=== PATIENT | male | born 1955 | race Caucasian/White ===

== ENCOUNTER 2023-04-29 08:28 | Outpatient (OUT) | payer OTHER, SELFPAY ==
[2023-04-29 09:22] LABS: Basophils Percent Auto 0.6 % (0.2-2.0); Eosinophils Percent Auto 0.1 % (0.9-7.0); Hemoglobin 13.4 g/dL (14.0-18.0); Immature Granulocytes Abs Auto 0.03 10^3/uL (0.00-0.03); Immature Granulocytes Pct Auto 0.4 % (0.0-0.5); Lymphocytes Absolute Auto 1.7 10^3/uL (1.2-3.8); Lymphocytes Percent Auto 24.3 % (20.5-60.0); Mean Corpuscular HGB Conc 32.7 g/dL (29.9-35.2); Mean Corpuscular Hemoglobin 30.3 pg (25.9-34.0); Mean Corpuscular Volume 92.8 fL (80.0-94.0); Mean Platelet Volume 8.7 fL (9.5-13.5); Monocytes Absolute Auto 0.7 10^3/uL (0.3-0.8); Monocytes Percent Auto 10.9 % (1.7-12.0); Neutrophils Absolute Auto 4.3 10^3/uL (1.4-6.5); Neutrophils Percent Auto 63.7 % (43.0-75.0); Platelet Count 304 10^3/uL (150-450); Red Blood Count 4.42 10^6/uL (4.70-6.10); Red Cell Distribution Width 13.2 % (11.0-15.0); White Blood Count 6.8 10^3/uL (4.0-11.0)
[2023-04-29 09:47] LABS: Estimated Average Glucose 117 mg/dL; Glycohemoglobin A1C 5.7 % (4.5-6.2)
[2023-04-29 10:20] LABS: Prostate Specific Antigen Scrn 1.08 ng/mL (<=4.00)
[2023-04-29 10:30] LABS: Alanine Aminotransferase 20 U/L (16-63); Albumin Globulin Ratio 1.1; Albumin Level 3.9 g/dL (3.4-5.0); Alkaline Phosphatase 90 U/L (46-116); Anion Gap 12.2; Aspartate Amino Transferase 22 U/L (15-37); BUN Creatinine Ratio 18.3; Bilirubin Total 0.4 mg/dL (0.2-1.0); Calcium 8.8 mg/dL (8.5-10.1); Carbon Dioxide 26.2 mmol/L (21.0-32.0); Chloride 104 mmol/L (98-107); Chol HDL Ratio 2.9; Cholesterol 165 mg/dL (<=200); Estimated GFR (African America >60 (>=60); Estimated GFR (Non-African Ame >60 (>=60); Globulin 3.5 g/dL; Glucose 115 mg/dL (74-106); HDL Cholesterol 57 mg/dL (40-60); LDL Cholesterol Calculated 86.6 mg/dL; Potassium 4.4 mmol/L (3.5-5.1); Sodium 138 mmol/L (136-145); Thyroid Stimulating Hormone 0.772 uIU/mL (0.358-3.740); Total Protein 7.4 g/dL (6.4-8.2); Triglycerides 107 mg/dL (<=150); VLDL CHOLESTEROL 21.4 mg/dL
[2023-05-01 13:07] LABS: Insulin 10.8 uIU/mL (2.6-24.9)
== END 2023-04-29 08:29 | disposition home or self-care (01) ==
PROVIDERS: PCP Nurse Practitioner Family; Visit Provider Nurse Practitioner Family
DX: I10 Essential (primary) hypertension (principal); Z12.5 Encounter for screening for malignant neoplasm of prostate
CPT/HCPCS: 36415; 80053; 80061; 83036; 83525; 84436; 84443; 84481; 85025; G0103

== ENCOUNTER 2023-05-01 16:46 | Outpatient (REF) | payer OTHER, SELFPAY ==
[2023-05-02 14:39] LABS: Occult Blood Negative
== END 2023-05-01 16:47 | disposition home or self-care (01) ==
LOC: LAB 16:46
PROVIDERS: PCP Nurse Practitioner Family; Visit Provider Nurse Practitioner Family
DX: Z12.11 Encounter for screening for malignant neoplasm of colon (principal)
CPT/HCPCS: G0328

== ENCOUNTER 2024-05-31 07:54 | Outpatient (OUT) | payer MEDICARE, SELFPAY ==
[2024-05-31 08:42] LABS: Basophils Absolute Auto 0.1 10^3/uL (0.0-0.1); Basophils Percent Auto 0.7 % (0.2-2.0); Eosinophils Percent Auto 0.3 % (0.9-7.0); Hematocrit 38.6 % (42.0-54.0); Immature Granulocytes Abs Auto 0.04 10^3/uL (0.00-0.03); Immature Granulocytes Pct Auto 0.5 % (0.0-0.5); Lymphocytes Absolute Auto 1.7 10^3/uL (1.2-3.8); Lymphocytes Percent Auto 22.7 % (20.5-60.0); Mean Corpuscular HGB Conc 33.7 g/dL (29.9-35.2); Mean Corpuscular Hemoglobin 31.3 pg (25.9-34.0); Mean Corpuscular Volume 92.8 fL (80.0-94.0); Mean Platelet Volume 8.9 fL (9.5-13.5); Monocytes Absolute Auto 0.8 10^3/uL (0.3-0.8); Monocytes Percent Auto 10.9 % (1.7-12.0); Neutrophils Absolute Auto 4.8 10^3/uL (1.4-6.5); Neutrophils Percent Auto 64.9 % (43.0-75.0); Platelet Count 335 10^3/uL (150-450); Red Blood Count 4.16 10^6/uL (4.70-6.10); Red Cell Distribution Width 13.2 % (11.0-15.0); White Blood Count 7.4 10^3/uL (4.0-11.0)
[2024-05-31 10:27] LABS: Prostate Specific Antigen Scrn 1.16 ng/mL (<=4.00)
[2024-05-31 11:01] LABS: Estimated Average Glucose 117 mg/dL; Glycohemoglobin A1C 5.7 % (4.5-6.2)
[2024-05-31 11:30] LABS: Alanine Aminotransferase 31 U/L (16-63); Albumin Globulin Ratio 1.1; Albumin Level 3.7 g/dL (3.4-5.0); Alkaline Phosphatase 87 U/L (46-116); Anion Gap 13.3; Aspartate Amino Transferase 32 U/L (15-37); BUN Creatinine Ratio 11.6; Bilirubin Total 0.5 mg/dL (0.2-1.0); Calcium 9.4 mg/dL (8.5-10.1); Carbon Dioxide 27.2 mmol/L (21.0-32.0); Chloride 103 mmol/L (98-107); Cholesterol 159 mg/dL (<=200); Estimated GFR (African America >60 (>=60); Estimated GFR (Non-African Ame >60 (>=60); Globulin 3.5 g/dL; Glucose 105 mg/dL (74-106); HDL Cholesterol 53 mg/dL (40-60); LDL Cholesterol Calculated 76.4 mg/dL; Potassium 4.5 mmol/L (3.5-5.1); Sodium 139 mmol/L (136-145); Total Protein 7.2 g/dL (6.4-8.2); Triglycerides 148 mg/dL (<=150); VLDL CHOLESTEROL 29.6 mg/dL
[2024-06-01 10:09] LABS: Insulin 9.7 uIU/mL (2.6-24.9)
== END 2024-05-31 07:55 | disposition home or self-care (01) ==
PROVIDERS: PCP Nurse Practitioner Family; Visit Provider Nurse Practitioner Family
DX: Z00.00 Encounter for general adult medical examination without abnormal findings (principal); E78.5 Hyperlipidemia, unspecified; M19.90 Unspecified osteoarthritis, unspecified site; R73.9 Hyperglycemia, unspecified; Z12.5 Encounter for screening for malignant neoplasm of prostate
CPT/HCPCS: 36415; 80053; 80061; 83036; 83525; 85025; G0103

== ENCOUNTER 2025-03-01 09:19 | Outpatient (OUT) | payer MEDICARE, SELFPAY ==
--- OUTSIDE RECORDS SUMMARY | 2025-03-01 09:23 | XMS_ITS | CCD ---
Author Organization [facility] Care Team Providers Care Vascular Ultrasound Technologist Name Role Phone DR SITA LIGHT Admitting Unavailable DR SITA LIGHT Attending Unavailable JEFF, MARIA VICTORIA Primary Care Unavailable JEFF, MARIA VICTORIA Consulting Unavailable JEFF MARIA VICTORIA Admitting Unavailable JEFF MARIA VICTORIA Attending Unavailable JEFF, MARIA VICTORIA Primary Care Unavailable JEFF, MARIA VICTORIA Consulting Unavailable JEFF, MARIA VICTORIA Admitting Unavailable JEFF, MARIA VICTORIA Attending Unavailable JEFF, MARIA VICTORIA Primary Care Unavailable JEFF, MARIA VICTORIA Consulting Unavailable Problems Problem Classification Problem Date Documented Da te Episodic/Chronic Diabetes mellitus without complication (1 source) Other abnormal glucose; Translations: [OTHER ABNORMAL GLUCOSE] Onset: 03-21-2022 Episodic Disorders of lipid metabolism (5 sources) Hyperlipidemia, unspecified; Translations: [HYPERLIPIDEMIA UNSPECIFIED] Onset: 07-10-2021 Chronic Essential hypertension (4 sources) Essential (primary) hypertension; Translations: [ESSENTIAL PRIMARY HYPERTENSION] Onset: 03-27-2021 Chronic Gout and other crystal arthropathies (1 source) Gout, unspecified; Translations: [GOUT UNSPECIFIED] Onset: 03-21-2022 Chronic Malaise and fatigue (4 sources) Other fatigue; Translations: [OTHER FATIGUE] Onset: 03-12-2022 Episodic Other screening for suspected conditions (not mental disorders or infectious disease) (2 sources) Encounter for screening for malignant neoplasm of prostate; Translations: [Encounter for screening for malignant neoplasm of rectum] Onset: 03-31-2021 Episodic Results Test Name Value Interpretation Reference Range Facil ity INSULINon 03-14-2022 Insulin 11.0 uIU/mL Normal 2.6-24.9 [facility] Comment on above: Performed By: #### I NSULIN #### [facility] [address] [place], [place] [address] Dr. Kiara Olvera CBC AUTO DIFFon 03-12-2022 BASO # 0.1 103/ul Normal 0.0-0.1 [facility] Comment on above: Performed By: #### C MP, LIPID #### [facility] [address] [place] [address] Dr. Kiara Olvera Basophils/100 WBC (Bld) 0.8 % Normal 0.2-2.0 [facility] Comment on above: Performed By: #### C MP, LIPID #### [facility] [address] [place] [address] Dr. Kiara Olvera EO # 1.3 103/ul Critically high 0.0-0.7 [facility] Comment on above: Performed By: #### C MP, LIPID #### [facility] [address] [place] [address] Dr. Kiara Olvera Eosinophils/100 WBC (Bld) 19.8 % Critically high 0.9-7.0 [facility] Comment on above: Performed By: #### C MP, LIPID #### [facility] [address] [place] [address] Dr. Kiara Olvera Erythrocyte distribution width (RBC) [Ratio] 12.8 % Normal 11.0-15.0 [facility] Comment on above: Performed By: #### C MP, LIPID #### [facility] [address] [place] [address] Dr. Kiara Olvera Hematocrit (Bld) [Volume fraction] 41.4 % Critically low 42.0-54.0 [facility] Comment on above: Performed By: #### C MP, LIPID #### [facility] [address] [place] [address] Dr. Kiara Olvera Hemoglobin (Bld) [Mass/Vol] 13.8 g/dL Critically low 14.0-18.0 [facility] Comment on above: Performed By: #### C MP, LIPID #### [facility] [address] [place] [address] Dr. Kiara Olvera IG # 0.01 10e3/ul Normal 0.00-0.03 [facility] Comment on above: Performed By: #### C MP, LIPID #### [facility] [address] [place] [address] [address] Kiara Olvera IG % 0.2 % Normal 0.0-0.5 [facility] Comment on above: Performed By: #### C MP, LIPID #### [facility] [address] [place] [address] [address] Kiara Olvera LYMPH # 1.9 103/ul Normal 1.2-3.8 [facility] Comment on above: Performed By: #### C MP, LIPID #### [facility] [address] [place] [address] [address] Kiara Olvera Lymphocytes/100 WBC (Bld) 28.7 % Normal 20.5-60.0 [facility] Comment on above: Performed By: #### C MP, LIPID #### [facility] [address] [place] [address] Dr. Kiara Olvera MANUAL DIFF REQ NO Normal [facility] Comment on above: Performed By: #### C MP, LIPID #### [facility] [address] [place] [address] Dr. Kiara Olvera MCH (RBC) [Entitic mass] 30.4 pg Normal 25.9-34.0 [facility] Comment on above: Performed By: #### C MP, LIPID #### [facility] [address] [place] [address] Dr. Kiara Olvera MCHC (RBC) [Mass/Vol] 33.3 g/dL Normal 29.9-35.2 [facility] Comment on above: Performed By: #### C MP, LIPID #### [facility] [address] [place] [address] Dr. Kiara Olvera MCV (RBC) [Entitic vol] 91.2 fL Normal 80.0-94.0 [facility] Comment on above: Performed By: #### C MP, LIPID #### [facility] [address] [place] [address] Dr. Kiara Olvera MONO # 0.7 103/ul Normal 0.3-0.8 [facility] Comment on above: Performed By: #### C MP, LIPID #### [facility] [address] [place] [address] [address] Kiara Olvera Monocytes/100 WBC (Bld) 10.6 % Normal 1.7-12.0 [facility] Comment on above: Performed By: #### C MP, LIPID #### [facility] [address] [place] [address] [address] Kiara Olvera NEUT # 2.6 103/ul Normal 1.4-6.5 [facility] Comment on above: Performed By: #### C MP, LIPID #### [facility] [address] [place] [address] Dr. Kiara Olvera Neutrophils/100 WBC (Bld) 39.9 % Critically low 43.0-75.0 [facility] Comment on above: Performed By: #### C MP, LIPID #### [facility] [address] [place] [address] Dr. Kiara Olvera Platelet mean volume (Bld) [Entitic vol] 8.6 fL Critically low 9.5-13.5 [facility] Comment on above: Performed By: #### C MP, LIPID #### [facility] [address] [place] [address] Dr. Kiara Olvera PLT 336 103/ul Normal 150-450 [facility] Comment on above: Performed By: #### C MP, LIPID #### [facility] [address] [place] [address] Dr. Kiara Olvera RBC 4.54 106/ul Critically low 4.70-6.10 [facility] Comment on above: Performed By: #### C MP, LIPID #### [facility] [address] [place] [address] Dr. Kiara Olvera WBC 6.5 103/ul Normal 4.0-11.0 [facility] Comment on above: Performed By: #### C MP, LIPID #### [facility] [address] [place] [address] Dr. Kiara Olvera GLYCOHEMOGLOBIN A1Con 2021 ADA RECOMMENDATION SEE BELOW Normal [facility] Comment on above: Result Comment: ADA RECOMMENDED LIMIT 4.0 - 6.0 ADA THERAPEUTIC TARGET < 7.0 ACTION SUGGESTED > 7.0 Performed By: #### C MP, LIPID #### [facility] [address] [place] [address] [address] Kiara Olvera Glucose [Mass/Vol] 123 mg/dL Normal [facility] Comment on above: Performed By: #### C MP, LIPID #### [facility] [address] [place] [address] [address] Kiara Olvera HbA1c (Bld) [Mass fraction] 5.9 % Normal 4.5-6.2 [facility] Comment on above: Performed By: #### C MP, LIPID #### [facility] [address] [place] [address] Dr. Kiara Olvera LIPID PROFILEon 03-12-2022 CHOL-HDL RATIO NORM SEE BELOW Normal [facility] Comment on above: Result Comment: 3.3 - 4.4 LOW RISK 4.4 - 7.1 AVERAGE RISK 7.1 - 11.0 MODERATE RISK >11.0 HIGH RISK Performed By: #### C MP, LIPID #### [facility] [address] [place] [address] Dr. Kiara Olvera Cholesterol [Mass/Vol] 213 mg/dL Critically high <=200 [facility] Comment on above: Performed By: #### C MP, LIPID #### [facility] [address] [place] [address] Dr. Kiara Olvera Cholesterol in HDL [Mass/Vol] 57 mg/dL Normal 40-60 [facility] Comment on above: Performed By: #### C MP, LIPID #### [facility] [address] [place] [address] Dr. Kiara Olvera Cholesterol in LDL [Mass/Vol] 136.0 mg/dL Normal [facility] Comment on above: Performed By: #### C MP, LIPID #### [facility] [address] [place] [address] Dr. Kiara Olvera Cholesterol.total/Cho lesterol in HDL [Mass ratio] 3.7 {ratio} Normal [facility] Comment on above: Performed By: #### C MP, LIPID #### [facility] [address] [place] [address] Dr. Kiara Olvera HDL NORMAL > or = 60 mg/dl - LOW CARDIOVASCULAR RISK <40 mg/dl - HIGH CARDIOVASCULAR RISK Normal [facility] Comment on above: Performed By: #### C MP, LIPID #### [facility] [address] [place] [address] [address] Kiara Olvera LDL CALC NORMAL SEE BELOW Normal [facility] Comment on above: Result Comment: <100 mg/dl OPTIMAL 100 - 129 mg/dl NEAR OR ABOVE OPTIMAL 130 - 159 mg/dl BORDERLINE HIGH 160 - 189 mg/dl HIGH >190 mg/dl VERY HIGH Performed By: #### C MP, LIPID #### [facility] [address] [place] [address] Dr. Kiara Olvera Triglyceride [Mass/Vol] 100 mg/dL Normal <=150 [facility] Comment on above: Performed By: #### C MP, LIPID #### [facility] [address] [place] [address] Dr. Kiara Olvera VLDL CALC 20.0 mg/dL Normal [facility] Comment on above: Performed By: #### C MP, LIPID #### [facility] [address] [place] [address] Dr. Kiara Olvera PROF 14(COMP METB)on 022 Albumin [Mass/Vol] 3.9 g/dL Normal 3.4-5.0 [facility] Comment on above: Performed By: #### C MP, LIPID #### [facility] [address] [place] [address] Dr. Kiara Olvera Albumin/Globulin [Mass ratio] 1.0 {ratio} Normal [facility] Comment on above: Performed By: #### C MP, LIPID #### [facility] [address] [place] [address] Dr. Kiara Olvera ALP [Catalytic activity/Vol] 84 U/L Normal 46-116 [facility] Comment on above: Performed By: #### C MP, LIPID #### [facility] [address] [place] [address] Dr. Kiara Olvera ALT [Catalytic activity/Vol] 20 U/L Normal 16-63 [facility] Comment on above: Performed By: #### C MP, LIPID #### [facility] [address] [place] [address] Dr. Kiara Olvera Anion gap [Moles/Vol] 13.1 mmol/L Normal [facility] Comment on above: Performed By: #### C MP, LIPID #### [facility] [address] [place] [address] Dr. Kiara Olvera AST [Catalytic activity/Vol] 24 U/L Normal 15-37 [facility] Comment on above: Performed By: #### C MP, LIPID #### [facility] [address] [place] [address] Dr. Kiara Olvera Bilirubin [Mass/Vol] 0.4 mg/dL Normal 0.2-1.0 [facility] Comment on above: Performed By: #### C MP, LIPID #### [facility] [address] [place] [address] Dr. Kiara Olvera Calcium [Mass/Vol] 9.2 mg/dL Normal 8.5-10.1 [facility] Comment on above: Performed By: #### C MP, LIPID #### [facility] [address] [place] [address] Dr. Kiara Olvera Chloride [Moles/Vol] 103 mmol/L Normal 98-107 [facility] Comment on above: Performed By: #### C MP, LIPID #### [facility] [address] [place] [address] Dr. Kiara Olvera CO2 [Moles/Vol] 26.4 mmol/L Normal 21.0-32.0 [facility] Comment on above: Performed By: #### C MP, LIPID #### [facility] [address] [place] [address] Dr. Kiara Olvera Creatinine [Mass/Vol] 0.92 mg/dL Normal 0.70-1.30 [facility] Comment on above: Performed By: #### C MP, LIPID #### [facility] [address] [place] [address] Dr. Kiara Olvera EGFR-AF TONGAN >60 Normal >=60 [facility] Comment on above: Performed By: #### C MP, LIPID #### [facility] [address] [place] [address] [address] Kiara Olvera EGFR-NON AF TONGAN >60 Normal >=60 [facility] Comment on above: Performed By: #### C MP, LIPID #### [facility] [address] [place] [address] [address] Kiara Olvera Globulin (S) [Mass/Vol] 3.9 g/dL Normal [facility] Comment on above: Performed By: #### C MP, LIPID #### [facility] [address] [place] [address] [address] Kiara Olvera Glucose [Mass/Vol] 114 mg/dL Critically high 74-106 [facility] Comment on above: Performed By: #### C MP, LIPID #### [facility] [address] [place] [address] [address] Kiara Olvera Potassium [Moles/Vol] 4.5 mmol/L Normal 3.5-5.1 [facility] Comment on above: Performed By: #### C MP, LIPID #### [facility] [address] [place] [address] [address] Kiara Olvera Protein [Mass/Vol] 7.8 g/dL Normal 6.4-8.2 [facility] Comment on above: Performed By: #### C MP, LIPID #### [facility] [address] [place] [address] [address] Kiara Olvera Sodium [Moles/Vol] 138 mmol/L Normal 136-145 [facility] Comment on above: Performed By: #### C MP, LIPID #### [facility] [address] [place] [address] [address] Kiara Olvera Urea nitrogen [Mass/Vol] 11.0 mg/dL Normal 7.0-18.0 [facility] Comment on above: Performed By: #### C MP, LIPID #### [facility] [address] [place] [address] [address] Kiara Olvera Urea nitrogen/Creatinine [Mass ratio] 12.0 mg/mg Normal [facility] Comment on above: Performed By: #### C MP, LIPID #### [facility] [address] [place] [address] [address] Kiara Olvera URIC ACID SERUMon 03-12-2022 Urate [Mass/Vol] 5.5 mg/dL Normal 3.5-7.2 [facility] Comment on above: Performed By: #### C MP, LIPID #### [facility] [address] [place] [address] [address] Kiara Olvera LIPID PROFILEon 07-10-2021 CHOL-HDL RATIO NORM SEE BELOW Normal [facility] Comment on above: Result Comment: 3.3 - 4.4 LOW RISK 4.4 - 7.1 AVERAGE RISK 7.1 - 11.0 MODERATE RISK >11.0 HIGH RISK Performed By: #### C MP, LIPID #### [facility] [address] [place] [address] [address] Kiara Olvera Cholesterol [Mass/Vol] 230 mg/dL Critically high <=200 [facility] Comment on above: Performed By: #### C MP, LIPID #### [facility] [address] [place] [address] [address] Kiara Olvera Cholesterol in HDL [Mass/Vol] 46 mg/dL Normal [facility] Comment on above: Performed By: #### C MP, LIPID #### [facility] [address] [place] [address] [address] Kiara Olvera Cholesterol in LDL [Mass/Vol] 148.6 mg/dL Normal [facility] Comment on above: Performed By: #### C MP, LIPID #### [facility] [address] [place] [address] [address] Kiara Olvera Cholesterol.total/Cho lesterol in HDL [Mass ratio] 5.0 {ratio} Normal [facility] Comment on above: Performed By: #### C MP, LIPID #### [facility] [address] [place] [address] [address] Kiara Olvera HDL NORMAL > or = 60 mg/dl - LOW CARDIOVASCULAR RISK <40 mg/dl - HIGH CARDIOVASCULAR RISK Normal [facility] Comment on above: Performed By: #### C MP, LIPID #### [facility] [address] [place] [address] Dr. Kiara Olvera LDL CALC NORMAL SEE BELOW Normal [facility] Comment on above: Result Comment: <100 mg/dl OPTIMAL 100 - 129 mg/dl NEAR OR ABOVE OPTIMAL 130 - 159 mg/dl BORDERLINE HIGH 160 - 189 mg/dl HIGH >190 mg/dl VERY HIGH Performed By: #### C MP, LIPID #### [facility] [address] [place] [address] Dr. Kiara Olvera Triglyceride [Mass/Vol] 177 mg/dL Critically high <=150 [facility] Comment on above: Performed By: #### C MP, LIPID #### [facility] [address] [place] [address] Dr. Kiara Olvera VLDL CALC 35.4 mg/dL Normal [facility] Comment on above: Performed By: #### C MP, LIPID #### [facility] [address] [place] [address] Dr. Kiara Olvera PROF 14(COMP METB)on 021 Albumin [Mass/Vol] 4.0 g/dL Normal 3.5-5.0 [facility] Comment on above: Performed By: #### C MP, LIPID #### [facility] [address] [place] [address] Dr. Kiara Olvera Albumin/Globulin [Mass ratio] 1.0 {ratio} Normal [facility] Comment on above: Performed By: #### C MP, LIPID #### [facility] [address] [place] [address] Dr. Kiara Olvera ALP [Catalytic activity/Vol] 99 U/L Normal 38-126 [facility] Comment on above: Performed By: #### C MP, LIPID #### [facility] [address] [place] [address] Dr. Kiara Olvera ALT [Catalytic activity/Vol] 22 U/L Normal 21-72 [facility] Comment on above: Performed By: #### C MP, LIPID #### [facility] [address] [place] [address] Dr. Kiara Olvera Anion gap [Moles/Vol] 14.6 mmol/L Normal [facility] Comment on above: Performed By: #### C MP, LIPID #### [facility] [address] [place] [address] Dr. Kiara Olvera AST [Catalytic activity/Vol] 25 U/L Normal 17-59 [facility] Comment on above: Performed By: #### C MP, LIPID #### [facility] [address] [place] [address] Dr. Kiara Olvera Bilirubin [Mass/Vol] 0.6 mg/dL Normal 0.2-1.3 [facility] Comment on above: Performed By: #### C MP, LIPID #### [facility] [address] [place] [address] Dr. Kiara Olvera Calcium [Mass/Vol] 9.4 mg/dL Normal 8.4-10.2 [facility] Comment on above: Performed By: #### C MP, LIPID #### [facility] [address] [place] [address] Dr. Kiara Olvera Chloride [Moles/Vol] 101 mmol/L Normal 98-107 [facility] Comment on above: Performed By: #### C MP, LIPID #### [facility] [address] [place] [address] Dr. Kiara Olvera CO2 [Moles/Vol] 25.8 mmol/L Normal 22.0-30.0 [facility] Comment on above: Performed By: #### C MP, LIPID #### [facility] [address] [place] [address] Dr. Kiara Olvera Creatinine [Mass/Vol] 0.80 mg/dL Normal 0.66-1.25 [facility] Comment on above: Performed By: #### C MP, LIPID #### [facility] [address] [place] [address] Dr. Kiara Olvera EGFR-AF TONGAN >60 Normal >=60 [facility] Comment on above: Performed By: #### C MP, LIPID #### [facility] [address] [place] [address] Dr. Kiara Olvera EGFR-NON AF TONGAN >60 Normal >=60 [facility] Comment on above: Performed By: #### C MP, LIPID #### [facility] [address] [place] [address] Dr. Kiara Olvera Globulin (S) [Mass/Vol] 4.2 g/dL Normal [facility] Comment on above: Performed By: #### C MP, LIPID #### [facility] [address] [place] [address] Dr. Kiara Olvera Glucose [Mass/Vol] 102 mg/dL Normal 74-106 [facility] Comment on above: Performed By: #### C MP, LIPID #### [facility] [address] [place] [address] Dr. Kiara Olvera Potassium [Moles/Vol] 4.4 mmol/L Normal 3.4-5.0 [facility] Comment on above: Performed By: #### C MP, LIPID #### [facility] [address] [place] [address] Dr. Kiara Olvera Protein [Mass/Vol] 8.2 g/dL Normal 6.1-8.2 [facility] Comment on above: Performed By: #### C MP, LIPID #### [facility] [address] [place] [address] Dr. Kiara Olvera Sodium [Moles/Vol] 137 mmol/L Normal 137-145 [facility] Comment on above: Performed By: #### C MP, LIPID #### [facility] [address] [place] [address] Dr. Kiara Olvera Urea nitrogen [Mass/Vol] 12.0 mg/dL Normal 9.0-20.0 [facility] Comment on above: Performed By: #### C MP, LIPID #### [facility] [address] [place] [address] Dr. Kiara Olvera Urea nitrogen/Creatinine [Mass ratio] 15.0 mg/mg Normal [facility] Comment on above: Performed By: #### C MP, LIPID #### [facility] [address] [place] [address] Dr. Kiara Olvera INSULINon 03-29-2021 Insulin 17.0 uIU/mL Normal 2.6-24.9 [facility] Comment on above: Performed By: #### I NSULIN #### [facility] [address] [place] [address] Albin Kohler CBC AUTO DIFFon 03-27-2021 BASO # 0.1 103/ul Normal 0.0-0.1 [facility] Comment on above: Performed By: #### C MP, LIPID #### [facility] [address] [place] [address] Dr. Kiara Olvera Basophils/100 WBC (Bld) 0.9 % Normal 0.2-2.0 [facility] Comment on above: Performed By: #### C MP, LIPID #### [facility] [address] [place] [address] Dr. Kiara Olvera EO # 0.0 103/ul Normal 0.0-0.7 [facility] Comment on above: Performed By: #### C MP, LIPID #### [facility] [address] [place] [address] Dr. Kiara Olvera Eosinophils/100 WBC (Bld) 0.6 % Critically low 0.9-7.0 [facility] Comment on above: Performed By: #### C MP, LIPID #### [facility] [address] [place] [address] Dr. Kiara Olvera Erythrocyte distribution width (RBC) [Ratio] 13.9 % Normal 11.0-15.0 [facility] Comment on above: Performed By: #### C MP, LIPID #### [facility] [address] [place] [address] Dr. Kiara Olvera Hematocrit (Bld) [Volume fraction] 44.6 % Normal 42.0-54.0 [facility] Comment on above: Performed By: #### C MP, LIPID #### [facility] [address] [place] [address] Dr. Kiara Olvera Hemoglobin (Bld) [Mass/Vol] 14.8 g/dL Normal 14.0-18.0 [facility] Comment on above: Performed By: #### C MP, LIPID #### [facility] [address] [place] [address] Dr. Kiara Olvera IG # 0.03 10e3/ul Normal 0.00-0.03 [facility] Comment on above: Performed By: #### C MP, LIPID #### [facility] [address] [place] [address] Dr. Kiara Olvera IG % 0.4 % Normal 0.0-0.5 [facility] Comment on above: Performed By: #### C MP, LIPID #### [facility] [address] [place] [address] Dr. Kiara Olvera LYMPH # 2.1 103/ul Normal 1.2-3.8 [facility] Comment on above: Performed By: #### C MP, LIPID #### [facility] [address] [place] [address] Dr. Kiara Olvera Lymphocytes/100 WBC (Bld) 29.5 % Normal 20.5-60.0 [facility] Comment on above: Performed By: #### C MP, LIPID #### [facility] [address] [place] [address] Dr. Kiara Olvera MANUAL DIFF REQ NO Normal [facility] Comment on above: Performed By: #### C MP, LIPID #### [facility] [address] [place] [address] Dr. Kiara Olvera MCH (RBC) [Entitic mass] 30.0 pg Normal 25.9-34.0 [facility] Comment on above: Performed By: #### C MP, LIPID #### [facility] [address] [place] [address] Dr. Kiara Olvera MCHC (RBC) [Mass/Vol] 33.2 g/dL Normal 29.9-35.2 [facility] Comment on above: Performed By: #### C MP, LIPID #### [facility] [address] [place] [address] Dr. Kiara Olvera MCV (RBC) [Entitic vol] 90.5 fL Normal 80.0-94.0 [facility] Comment on above: Performed By: #### C MP, LIPID #### [facility] [address] [address] [address] Kiara Olvera MONO # 0.6 103/ul Normal 0.3-0.8 [facility] Comment on above: Performed By: #### C MP, LIPID #### [facility] [address] [address] [address] Kiara Olvera Monocytes/100 WBC (Bld) 9.1 % Normal 1.7-12.0 [facility] Comment on above: Performed By: #### C MP, LIPID #### [facility] [address] [address] [address] Kiara Olvera NEUT # 4.1 103/ul Normal 1.4-6.5 [facility] Comment on above: Performed By: #### C MP, LIPID #### [facility] [address] [place] [address] Dr. Kiara Olvera Neutrophils/100 WBC (Bld) 59.5 % Normal 43.0-75.0 [facility] Comment on above: Performed By: #### C MP, LIPID #### [facility] [address] [place] [address] Dr. Kiara Olvera Platelet mean volume (Bld) [Entitic vol] 8.9 fL Critically low 9.5-13.5 [facility] Comment on above: Performed By: #### C MP, LIPID #### [facility] [address] [place] [address] Dr. Kiara Olvera PLT 298 103/ul Normal 150-450 [facility] Comment on above: Performed By: #### C MP, LIPID #### [facility] [address] [place] [address] Dr. Kiara Olvera RBC 4.93 106/ul Normal 4.70-6.10 [facility] Comment on above: Performed By: #### C MP, LIPID #### [facility] [address] [place] [address] Dr. Kiara Olvera WBC 6.9 103/ul Normal 4.0-11.0 [facility] Comment on above: Performed By: #### C MP, LIPID #### [facility] [address] [place], [place] [address] Dr. Kiara Olvera GLYCOHEMOGLOBIN A1Con 2020 ADA RECOMMENDATION ADA THERAPEUTIC TARGET 6.0 - 7.0 ACTION SUGGESTED > 7.0 Normal [facility] Comment on above: Performed By: #### A 1C #### [facility] [address] [id number] Albin Edita Glucose [Mass/Vol] 126 mg/dL Normal [facility] Comment on above: Performed By: #### A 1C #### [facility] [address] [address] Albin Edita HbA1c (Bld) [Mass fraction] 6.0 % Normal <=6.0 [facility] Comment on above: Performed By: #### A 1C #### [facility] [address] [address] Albin Edita LIPID PROFILEon 03-27-2021 CHOL-HDL RATIO NORM SEE BELOW Normal [facility] Comment on above: Result Comment: 3.3 - 4.4 LOW RISK 4.4 - 7.1 AVERAGE RISK 7.1 - 11.0 MODERATE RISK >11.0 HIGH RISK Performed By: #### P SASC, LIPID, CMP, URIC #### [facility] [address] [address] Albin Edita Cholesterol [Mass/Vol] 254 mg/dL Critically high <=200 [facility] Comment on above: Performed By: #### P SASC, LIPID, CMP, URIC #### [facility] [address] [address] Albin Edita Cholesterol in HDL [Mass/Vol] 46 mg/dL Normal [facility] Comment on above: Performed By: #### P SASC, LIPID, CMP, URIC #### [facility] [address] [id number] Ablin Edita Cholesterol in LDL [Mass/Vol] 179.0 mg/dL Normal [facility] Comment on above: Performed By: #### P SASC, LIPID, CMP, URIC #### [facility] [address] [address] Albin Edita Cholesterol.total/Cho lesterol in HDL [Mass ratio] 5.5 {ratio} Normal [facility] Comment on above: Performed By: #### P SASC, LIPID, CMP, URIC #### [facility] [address] [id number] Albinjorge a Kohler HDL NORMAL > or = 60 mg/dl - LOW CARDIOVASCULAR RISK <40 mg/dl - HIGH CARDIOVASCULAR RISK Normal [facility] Comment on above: Performed By: #### P SASC, LIPID, CMP, URIC #### [facility] [address] [id number] Albin Kohler LDL CALC NORMAL SEE BELOW Normal [facility] Comment on above: Result Comment: <100 mg/dl OPTIMAL 100 - 129 mg/dl NEAR OR ABOVE OPTIMAL 130 - 159 mg/dl BORDERLINE HIGH 160 - 189 mg/dl HIGH >190 mg/dl VERY HIGH Performed By: #### P SASC, LIPID, CMP, URIC #### [facility] [address] [address] Albin Kohler Triglyceride [Mass/Vol] 147 mg/dL Normal <=150 [facility] Comment on above: Performed By: #### P SASC, LIPID, CMP, URIC #### [facility] [address] [id number] Albin Kohelr VLDL CALC 29.4 mg/dL Normal [facility] Comment on above: Performed By: #### P SASC, LIPID, CMP, URIC #### [facility] [address] [id number] Albin Kohler OCC BLD IMMUNO SCREENon 03-03 OCCULT BLOOD Negative Normal NEGATIVE [facility] Comment on above: Performed By: #### O BSCRN #### [facility] [address] [id number] Albin Edita PROF 14(COMP METB)on 021 Albumin [Mass/Vol] 3.8 g/dL Normal 3.5-5.0 [facility] Comment on above: Performed By: #### C MP, LIPID #### [facility] [id number] Kiara Olvera Albumin/Globulin [Mass ratio] 0.8 {ratio} Normal [facility] Comment on above: Performed By: #### C MP, LIPID #### [facility] [address] [place] [address] Dr. Kiara Olvera ALP [Catalytic activity/Vol] 88 U/L Normal 38-126 [facility] Comment on above: Performed By: #### C MP, LIPID #### [facility] [address] [address] [address] Kiara Olvera ALT [Catalytic activity/Vol] 19 U/L Critically low 21-72 [facility] Comment on above: Performed By: #### C MP, LIPID #### [facility] [address] [place] [address] Dr. Kiara Olvera Anion gap [Moles/Vol] 15.2 mmol/L Normal [facility] Comment on above: Performed By: #### C MP, LIPID #### [facility] [address] [address] [address] Kiara Olvera AST [Catalytic activity/Vol] 19 U/L Normal 17-59 [facility] Comment on above: Performed By: #### C MP, LIPID #### [facility] [address] [place] [address] Dr. Kiara Olvera Bilirubin [Mass/Vol] 0.4 mg/dL Normal 0.2-1.3 [facility] Comment on above: Performed By: #### C MP, LIPID #### [facility] [address] [address] [address] Kiara Olvera Calcium [Mass/Vol] 9.1 mg/dL Normal 8.4-10.2 [facility] Comment on above: Performed By: #### C MP, LIPID #### [facility] [address] [place] [address] Dr. Kiara Olvera Chloride [Moles/Vol] 104 mmol/L Normal 98-107 [facility] Comment on above: Performed By: #### C MP, LIPID #### [facility] [address] [place] [address] Dr. Kiara Olvera CO2 [Moles/Vol] 25.3 mmol/L Normal 22.0-30.0 [facility] Comment on above: Performed By: #### C MP, LIPID #### [facility] [address] [place] [address] Dr. Kiara Olvera Creatinine [Mass/Vol] 1.00 mg/dL Normal 0.66-1.25 [facility] Comment on above: Performed By: #### C MP, LIPID #### [facility] [address] [address] [address] Kiara Olvera EGFR-AF TONGAN >60 Normal >=60 [facility] Comment on above: Performed By: #### C MP, LIPID #### [facility] [address] [place] [address] Dr. Kiara Olvera EGFR-NON AF TONGAN >60 Normal >=60 [facility] Comment on above: Performed By: #### C MP, LIPID #### [facility] [address] [place] [address] Dr. Kiara Olvera Globulin (S) [Mass/Vol] 4.3 g/dL Normal [facility] Comment on above: Performed By: #### C MP, LIPID #### [facility] [address] [place] [address] Dr. Kiara Olvera Glucose [Mass/Vol] 115 mg/dL Critically high 74-[address] [facility] Comment on above: Performed By: #### C MP, LIPID #### [facility] [address] [place] [address] Dr. Kiara Olvera Potassium [Moles/Vol] 4.5 mmol/L Normal 3.4-5.0 [facility] Comment on above: Performed By: #### C MP, LIPID #### [facility] [address] [place] [address] Dr. Kiara Olvera Protein [Mass/Vol] 8.1 g/dL Normal 6.1-8.2 [facility] Comment on above: Performed By: #### C MP, LIPID #### [facility] [address] [place] [address] Dr. Kiara Olvera Sodium [Moles/Vol] 140 mmol/L Normal 137-145 [facility] Comment on above: Performed By: #### C MP, LIPID #### [facility] [address] [place], [place] [address] Dr. Kiara Olvera Urea nitrogen [Mass/Vol] 12.0 mg/dL Normal 9.0-20.0 [facility] Comment on above: Performed By: #### C MP, LIPID #### [facility] [id number] Kiara Olvera Urea nitrogen/Creatinine [Mass ratio] 12.0 mg/mg Normal [facility] Comment on above: Performed By: #### C MP, LIPID #### [facility] [address] [place] [address] Dr. Kiara Olvera URIC ACID SERUMon 03-27-2021 Urate [Mass/Vol] 6.5 mg/dL Normal 3.5-8.5 [facility] Comment on above: Performed By: #### P SASC, LIPID, CMP, URIC #### [facility] [address] [place], [place] [id number] Albin Kohler Encounters Encounter Date Encounter Type Care Provider Facility Start: 03-12-2022 End: 03-13-[address] SITA LIGHT Facility:[facility] Start: 07-10-2021 End: 07-11-2021 ambulatory MARIA VICTORIA AGUILAR Facility:[facility] Start: 03-27-2021 End: 03-28-2021 ambulatory MARIA VICTORIA AGUILAR Facility: Procedures Date Procedure Procedure Detail Performing Clinician Start: 03-12-[address] MISSY LIGHT Comment on above: Performed By: #### P SASC #### [facility] [address] [place] [address] [address] [address] Kiara Olvera Start: 03-27-[address] MISSY LIGHT Comment on above: Performed By: #### P SASC, LIPID, CMP, URIC #### [facility] [address] [place] [address] Albin Kohler Payers Date Payer Category Payer Medicare [id number] 1960 Unknown [id number] 1955 Unknown [id number] 1955 Unknown [id number] [id number] [id number] 1955 Unknown [id number] [id number] [id number] Summary Purpose Family History No Family History Records Found Advance Directives No Advanced Directives Records Found Additional Source Comments (unrecognized sect ion and content) No Status Records Found INFORMATION SOURCE (unrecogn ized section and content) DATE CREATED AUTHOR 03/22/2022 [facility] FOR RECORDS PERTAINING TO PATIENTS WHO ARE OR HAVE BEEN ENROLLED IN A CHEMICAL DEPENDENCY/SUBSTANCEABUSE PROGRAM, SOME INFORMATION MAY BE OMITTED. This clinical summary was aggregated from multiple sources. Caution should be exercised in using it in the provision of clinical care. This summary normalizes information from multiple sources, and as a consequence, information in this document may materially change the coding, format and clinical context of patient data. In addition, data may be omitted in some cases. CLINICAL DECISIONS SHOULD BE BASED ON THE PRIMARY CLINICAL RECORDS. [facility] [employer] [facility]. provides no warranty or guarantee of the accuracy or completeness of information in this document.
[2025-03-01 09:53] LABS: Basophils Absolute Auto 0.1 10^3/uL (0.0-0.1); Basophils Percent Auto 0.7 % (0.2-2.0); Hematocrit 41.2 % (42.0-54.0); Hemoglobin 13.7 g/dL (14.0-18.0); Immature Granulocytes Abs Auto 0.05 10^3/uL (0.00-0.03); Immature Granulocytes Pct Auto 0.6 % (0.0-0.5); Lymphocytes Absolute Auto 2.2 10^3/uL (1.2-3.8); Lymphocytes Percent Auto 25.1 % (20.5-60.0); Mean Corpuscular HGB Conc 33.3 g/dL (29.9-35.2); Mean Corpuscular Hemoglobin 30.5 pg (25.9-34.0); Mean Corpuscular Volume 91.8 fL (80.0-94.0); Mean Platelet Volume 8.8 fL (9.5-13.5); Monocytes Absolute Auto 0.9 10^3/uL (0.3-0.8); Monocytes Percent Auto 10.1 % (1.7-12.0); Neutrophils Absolute Auto 5.6 10^3/uL (1.4-6.5); Neutrophils Percent Auto 63.5 % (43.0-75.0); Platelet Count 373 10^3/uL (150-450); Red Blood Count 4.49 10^6/uL (4.70-6.10); Red Cell Distribution Width 12.7 % (11.0-15.0); White Blood Count 8.7 10^3/uL (4.0-11.0)
[2025-03-01 10:13] LABS: Estimated Average Glucose 128 mg/dL; Glycohemoglobin A1C 6.1 % (4.5-6.2)
[2025-03-01 10:24] LABS: Alanine Aminotransferase 30 U/L (16-63); Albumin Globulin Ratio 0.9; Albumin Level 3.5 g/dL (3.4-5.0); Alkaline Phosphatase 113 U/L (46-116); Anion Gap 17.8; Aspartate Amino Transferase 27 U/L (15-37); BUN Creatinine Ratio 21.6; Bilirubin Total 0.3 mg/dL (0.2-1.0); Calcium 9.3 mg/dL (8.5-10.1); Carbon Dioxide 22.9 mmol/L (21.0-32.0); Chloride 101 mmol/L (98-107); Chol HDL Ratio 3.9; Cholesterol 169 mg/dL (<=200); Estimated GFR (African America >60 (>=60 mL/min/1.73m^2); Estimated GFR (Non-African Ame >60 (>=60 mL/min/1.73m^2); Free T3 1.63 pg/mL (2.18-3.98); Globulin 4.1 g/dL; Glucose 105 mg/dL (74-106); HDL Cholesterol 43 mg/dL (40-60); LDL Cholesterol Calculated 101.4 mg/dL; Potassium 4.7 mmol/L (3.5-5.1); Sodium 137 mmol/L (136-145); Thyroid Stimulating Hormone 1.132 uIU/mL (0.358-3.740); Total Protein 7.6 g/dL (6.4-8.2); Triglycerides 123 mg/dL (<=150); VLDL CHOLESTEROL 24.6 mg/dL
[2025-03-01 12:04] LABS: Prostate Specific Antigen Scrn 1.51 ng/mL (<=4.00)
== END 2025-03-01 09:20 | disposition home or self-care (01) ==
LOC: LAB 09:21
PROVIDERS: PCP Nurse Practitioner Family; Visit Provider Nurse Practitioner Family
DX: E78.5 Hyperlipidemia, unspecified (principal); I10 Essential (primary) hypertension; R73.09 Other abnormal glucose; M10.9 Gout, unspecified; E03.9 Hypothyroidism, unspecified; Z12.5 Encounter for screening for malignant neoplasm of prostate; R53.83 Other fatigue
CPT/HCPCS: 36415; 80053; 80061; 83036; 83525; 84436; 84443; 84481; 84550; 85025; G0103

== ENCOUNTER 2025-10-01 13:56 | Outpatient (OUT) | payer MEDICARE, SELFPAY ==
--- OUTSIDE RECORDS SUMMARY | 2025-09-30 06:30 | XMS_ITS ---
Author Organization [facility] in [place] Address [address] [place] [address] Care Team Providers Care Production Control Clerk Name Role Phone Cassie Peters Primary Care Provider Allergies No Known Allergies Reason For Referral Reason nocturia Diagnosis 1 Nocturia (R35.1) Referral Organization [facility] Referring Provider First Name Cassie Referring Provider Last Name Lorraine [facility]erring Provider [facility] yesi Referred Provider Jerome Kothari Referred Provider Specialty Urology Referral Priority Routine Reason chronic right knee p ain Diagnosis 1 Right knee pain (M25 .561) Referral Organization [facility] Referring Provider First Name Cassie Referring Provider Last Name Lorraine Referring Provider [facility] yeis Referred Provider Ryley Ferguson Referred Provider Specialty Orthopedic S urgery Referral Priority Routine REASON FOR VISIT right knee pain, twisted knee 4-5 years ago and has been hurting since then, lately pain has been worse, patient is asking for a handicap placard, patient thinks he needs a urology referral due to weak urination stream and urine frequency Medications Medication SIG (Take, Route, Frequency, Duration) Notes Start Date End Date Status hydroCHLOROthiazide 12.5 MG 1 tablet in the morning Orally Once a day; Duration: 30 days 5ActiveMultivitaminWith IRONActiveMethocarbamol 750 MG1 tablet Orally BID prn; Duration: 5 days5ActiveLisinopril 40 MG1 tablet Orally Once a day; Duration: 30 days5ActiveMeloxicam 7.5 MGTAKE 1 TABLET BY MOUTH EVERY DAY FOR 30 DAYS; Duration: 30ActiveAtorvastatin Calcium 20 MG1 tablet Orally Once a day; Duration: 90 daysActive Social History Tobacco Use: Social History Observation Description Date Details (start date - stop date) Never Smoker NA - NA Tobacco Use/Smoking Question Answer Notes Patient is a nonsmoker Vital Signs Weight 255 lbs 09/30/2025 Height 70 in 09/30/2025 Blood pressure systolic 150 mm Hg 09/30/20 25 Blood pressure diastolic 80 mm Hg 025 BMI 36.58 kg/m2 09/30/2025 Encounters Encounter Location Date Provider Diagnosis [facility] [address] [place] [address] 09/30/2025 Cassie Peters Nocturia R35.1 and Right knee pain M25.561 Assessments Encounter Date Diagnosis (ICD Code) Assessment Notes Treatment Notes Treatment Clinical Notes Section Notes 09/30/2025 Nocturia (ICD-10 - R35.1) 09/30/2025Right knee pain (ICD-10 - M25.561) Plan Of Treatment Pending Test Test Name Order Date XR KNEE RT 3V 09/30/2025 Referrals Referral Date Details 09/30/2025 09/30/2025, nocturia , Jerome Kothari 09/30/2025 09/30/2025, chronic right knee pain, Ryley Ferguson Next Appt Details Follow Up: prn, Reason: Progress Notes * Elian WEEMS TDOB:1954 (70 yo M)Acc No.[id number]:09/30/2025 UNLOCKED PROGRESS NOTE Progress Note Patient: Elian CORONA :?Cassie Peters ([facility]), CNPDOB:1955 ???Age:70 Y???Sex:MaleDate:09/30/2025Phone:[phone]:[address], [place]Check In:11:18 AM ESTCheck Out:11:45 AM EST Subjective: * Chief Complaints: * 1 . Right knee pain, twisted knee 4-5 years ago and has been hurting since then, lately pain has been worse, patient is asking for a handicap placard. 2. Patient thinks he needs a urology referral due to weak urination stream and urine frequency. * HPI: ???General:? right knee pain , not new told needed knee replacement in past? told left was worse than right, but right is one bothers him most requesting to see ortho requesting handicap placgia urinating at night for several years now 4 times after 2 am requesting to see urologist. * ROS: ???General/Constitutional:?Fever?denies.?Headache?denies.?Weight loss denies.?Ophthalmologic:?Discharge?denies.?Eye Pain?denies.?Itching and redness?denies.?ENT:?Nasal discharge?denies.?Nasal congestion?denies. Sore throat?denies.?Cardiovascular:?Chest tightness/ heavy pressure?denies.?Rapid heart rate?denies.?Swelling of extremities?denies.?Chest pain?denies.?Respiratory:?Productive cough?denies.?Chest pain?denies.?Cough?denies.?Shortness of breath?denies.?Wheezing?denies.?Gastrointestinal:?Abdominal pain?denies.?Constipation?denies.?Decreased appetite?denies.?Diarrhea?denies.?Nausea?denies.?Vomiting denies.?Genitourinary:?Urinary incontinence?denies.?Frequent nighttime urination ?admits.?Painful urination?denies.?Musculoskeletal:?Patient complaining of?right knee pain, chronic.?Backpain?denies.?Neck pain?denies.?Muscle aches?denies.?Skin:?Rash?denies.?Skin lesion(s)?denies.? * Medical History: O steoarthritis, Knee pain, right, BMI 38.0-38.9,adult, Hyperglycemia, Hyperlipidemia, Impacted cerumen, right ear, Dizziness, Hypertension, Wellness examination. * Surgical History: T onsillectomy . * Family History: F ather: . M other: , diagnosed with Diabetes, Hypertension. 1 brother(s) . 1 son(s) , 3 daughter(s) . . * Social History: ???Tobacco Use:?Tobacco Use/Smoking?Patient is a?nonsmoker * Medications: T aking Atorvastatin Calcium 20 MG Tablet 1 tablet Orally Once a day , Taking hydroCHLOROthiazide 12.5 MG Tablet 1 tablet in the morning Orally Once a day , Taking Lisinopril 40 MG Tablet 1 tablet Orally Once a day , Taking Meloxicam 7.5 MG Tablet TAKE 1 TABLET BY MOUTH EVERY DAY FOR 30 DAYS , Taking Methocarbamol 750 MG Tablet 1 tablet Orally BID prn , Taking Multivitamin , Notes to Pharmacist: With IRON, Medication List reviewed and reconciled with the patient * Allergies: N .K.D.A. Objective: * Vitals: W t:255lbs, Ht: 70 in, BP:150/80mm Hg, BMI:36.58Index, Ht-cm: 177.8 cm, Wt-k.67 kg. * Examination: ???General Examinations: ?GENERAL APPEARANCE:?alert and oriented, in no acute distress, obese.?EYES:?conjunctiva normal, sclera non-icteric.?NOSE:?normal external appearance.?LUNGS:?clear to auscultation bilaterally.?CARDIO:?regular rate and rhythm, S1, S2 normal.?MUSCULOSKELETAL:?decreased ROM due to body habitus, right knee pain.?SKIN:?warm and dry.? Assessment: * Assessment: 1.?Nocturia - R35.1 (Primary)???2.?Right knee pain - M25.561?? Plan: * Treatment: ? Referral To:Jerome Kothari??Urology ?Reason:nocturia 2.?Right knee pain?Imaging: XR KNEE RT 3V? Referral To:Ryley Ferguson??Orthopedic Surgery ?Reason:chronic right knee pain * Procedure Codes: 3 079F DIAST BP 80-89 MM HG, 3077F SYST BP > OR = 140 MM HG * Preventive Medicine: ??Screenings/Counseling:?BMI ACTION PLAN?Above Normal BMI Follow-up?Dietary management education, guidance, and counseling ?FALL RISK SCREENING?Fall Risk Assessment:?No falls in the past year * Follow Up: p rn * * Electronic signature of Cassie Peters NP, CLEARANCE DIVER.[email or web address] PROCESS [email or web address] on 10/01/2025 at 02:00 PM ESTSign off status: PendingVisit Status:?CHK (Check Out) * Provider: Jaye Peters ([facility]), MECHANICAL PROCESS ENGINEER Date: Generated for Printing/Faxing/eTransmitting on:?10/01/2025 02:00 PM EST History and Physical Notes * HPI (History of Present Illness) CategorySub-CategoryDetailNotesCategory NotesGeneral right knee pain , not new told needed knee replacement in past told left was worse than right, but right is one bothers him most requesting to see ortho requesting handicap placard urinating at night for several years now 4 times after 2 am requesting to see urologist Examination CategorySub-CategoryDetailNotesCategory NotesGeneral ExaminationsGENERAL APPEARANCE:alert and oriented, in no acute distress, obeseEYES:conjunctiva normal, sclera non-ictericEARS:NOSE:normal external appearanceTHROAT:CARDIO: regular rate and rhythm, S1, S2 normalLUNGS:clear to auscultation bilaterally ABDOMEN:SKIN:warm and dryBACK:MUSCULOSKELETAL:decreased ROM due to body habitus, right knee painLYMPH NODES: Consultation Request Notes Referral Date Referring Provider Referred Provider Not es 09/30/2025 Cassie Peters, Jerome crowe 09/30/2025 Csasie Peters, Ryley zapata rig ht knee pain
--- OUTSIDE RECORDS SUMMARY | 2025-10-01 14:00 | XMS_ITS | Patient Health Record ---
Author Organization [facility] in [place] Address [address] [place] [address] Care Team Providers Care Welding Machine Operator Electron Beam Name Role Phone Lorraine Cassie Primary Care Provider Alba Low Bowman [phone] Allergies No Known Allergies Results Component Value Reference Range Notes INSULIN Reviewed date:03/03/2025 01:04:17 PM Interpretation: Performing Lab: Notes/Report: [facility] , Insulin 17.0 2.6-24.9 uIU/mL Performed at: - [facility] [address] [id number] Tempering Oven Operator: Shaggy Sharp PhD, Phone: [phone] Performing Lab: see note - [facility] LBURIC ACID SERUM Reviewed date:03/03/2025 01:04:17 PM Interpretation: Performing Lab: Notes/Report: [facility] ,Uric Acid6.03.5-7.2 mg/dLPerforming Lab:see noteML - [facility] LB TSH Reviewed date:03/03/2025 01:04:17 PM Interpretation: Performing Lab: Notes/Report: [facility] ,Thyroid Stimulating Hormone1.1320.358-3.740 uIU/mLPerforming Lab:see note - [facility] LBT4 Reviewed date:03/03/2025 01:04:17 PM Interpretation: Performing Lab: Notes/Report: [facility] ,T4 Thyroxine5.104.50-12.10 ug/dLPerforming Lab:see note - [facility] LBPSA SCREENING Reviewed date:03/03/2025 01:04:17 PM Interpretation: Performing Lab: Notes/Report: [facility] ,Prostate Specific Antigen Scrn1.51<=4.00 ng/mLPerforming Lab:see noteML - [facility] LBPROF 14(COMP METB) Reviewed date:03/03/2025 01:04:17 PM Interpretation: Performing Lab: Notes/Report: [facility] ,Hluwtk388957-302 mmol/LPotassium4.73.5-5.1 mmol/YMgkioxbd73390-836 mmol/LCarbon Vwuuvbb12.921.0-32.0 mmol/LAnion Gap17.8Jupizta65473-255 mg/dLBlood Urea Qhbmbjfi24.07.0-18.0 mg/dLCreatinine1.110.70-1.30 mg/dLEstimated GFR ( Ambika>60>=60 mL/min/1.73m 2Estimated GFR (Non- Cynthia>60>=60 mL/min/1.73m 2BUN Creatinine Ratio21.4Fpcxgtu2.38.5-10.1 mg/dLBilirubin Total0.30.2-1.0 mg/dL Aspartate Amino Gtoytpjuony3396-79 U/LAlanine Npixydepptparwuv0254-13 U/L Alkaline Vaneuruiyhw77427-845 U/LTotal Protein7.66.4-8.2 g/dLAlbumin Level3.5 3.4-5.0 g/dLGlobulin4.1Albumin Globulin Ratio0.9Performing Lab:see noteML - [facility] LBLIPID PROFILE Reviewed date:03/03/2025 01:04:17 PM Interpretation: Performing Lab: Notes/Report: [facility] ,Ynicouwqpzssw670<=150 mg/sOGplaurfjxno349<=200 mg/dLHDL Umnkbijtkiy0564-10 mg/dL > or =60 mg/dl - LOW CARDIOVASCULAR RISK <40 mg/dl - HIGH CARDIOVASCULAR RISK LDL Cholesterol Negmedxlnt191.4 160-189 mg/dl HIGH <100 mg/dl OPTIMAL 130-159 mg/dl BORDERLINE HIGH >190 mg/dl VERY HIGH 100-129 mg/dl NEAR OR ABOVE OPTIMAL VLDL VVYLZMSEUGL07.6Chol HDL Ratio3.9 4.4 - 7.1 AVERAGE RISK >11.0 HIGH RISK 3.3 - 4.4 LOW RISK 7.1 - 11.0 MODERATE RISK Performing Lab:see noteML - [facility] LBGLYCOHEMOGLOBIN A1C Reviewed date:03/03/2025 01:04:17 PM Interpretation: Performing Lab: Notes/Report: [facility] ,Glycohemoglobin A1C6.14.5-6.2 % ACTION SUGGESTED ADA RECOMMENDED LIMIT 4.0 - 6.0 > 7.0 ADA THERAPEUTIC TARGET < 7.0 Estimated Average Fvewklg424Krenckwpyw Lab:see noteML - [facility] LB FREE T3 Reviewed date:03/03/2025 01:04:17 PM Interpretation: Performing Lab: Notes/Report: [facility] ,Free T31.632.18-3.98 pg/mLPerforming Lab:see note - [facility] LB CBC AUTO DIFF Reviewed date:03/03/2025 01:04:17 PM Interpretation: Performing Lab: Notes/Report: [facility] ,White Blood Count8.74.0-11.0 10 3/uLRed Blood Count4.494.70-6.10 10 6/uL Yuuocpjrlx90.714.0-18.0 g/oIDjmrsrqpoh01.242.0-54.0 %Mean Corpuscular Keynpx58.8 80.0-94.0 fLMean Corpuscular Xlyrbfollx62.525.9-34.0 pgMean Corpuscular HGB Conc 33.329.9-35.2 g/dLRed Cell Distribution Width12.711.0-15.0 %Platelet Fcwmr753 150-450 10 3/uLMean Platelet Volume8.89.5-13.5 fLNeutrophils Percent Auto63.5 43.0-75.0 %Lymphocytes Percent Auto25.120.5-60.0 %Monocytes Percent Auto10.11.7- 12.0 %Eosinophils Percent Auto0.00.9-7.0 %Basophils Percent Auto0.70.2-2.0 % Immature Granulocytes Pct Auto0.60.0-0.5 %Neutrophils Absolute Auto5.61.4-6.5 10 3/uLLymphocytes Absolute Auto2.21.2-3.8 10 3/uLMonocytes Absolute Auto0.90.3-0.8 10 3/uLEosinophils Absolute Auto0.00.0-0.7 10 3/uLBasophils Absolute Auto0.10.0- 0.1 10 3/uLImmature Granulocytes Abs Auto0.050.00-0.03 10 3/uLPerforming Lab:see noteML - [facility] Reason For Referral Reason right shoulder pain Diagnosis 1 Right shoulder pain (M25.511) Referral Organization [facility] Referring Provider First Name Cassie Referring Provider Last Name [facility] Referring Provider [facility] Referred Provider Yared Montelongo Referred Provider Specialty Pain Medicin e Referral Priority Routine Reason nocturia Diagnosis 1 Nocturia (R35.1) Referral Organization [facility] Referring Provider First Name Cassie Referring Provider Last Name [facility] Referring Provider [facility] Referred Provider Jerome Kothari Referred Provider Specialty Urology Referral Priority Routine Reason chronic right knee p ain Diagnosis 1 Right knee pain (M25 .561) Referral Organization [facility] Referring Provider First Name Cassie Referring Provider Last Name [facility] Referring Provider [facility] Referred Provider Ryley Ferguson Referred Provider Specialty Orthopedic S urgery Referral Priority Routine Medications Medication SIG (Take, Route, Frequency, Duration) Notes Start Date End Date Status Atorvastatin Calcium 20 MG 1 tablet Orally Once a day; Duration: 90 days ActivehydroCHLOROthiazide 12.5 MG1 tablet in the morning Orally Once a day; Duration: 30 days5ActiveMultivitaminWith IRONActiveMethocarbamol 750 MG 1 tablet Orally BID prn; Duration: 5 days5ActiveLisinopril 40 MG1 tablet Orally Once a day; Duration: 30 days5ActiveMeloxicam 7.5 MGTAKE 1 TABLET BY MOUTH EVERY DAY FOR 30 DAYS; Duration: 30Active Social History Tobacco Use: Social History Observation Description Date Details (start date - stop date) Never Smoker NA - NA Tobacco Use/Smoking Question Answer Notes Patient is a nonsmoker Problems Problem Type SNOMED Code ICD Code Onset Dates Problem Status W/U Status Risk Notes Problem Essential hypertension (97566666 ) Essential (primary) hypertension (I10) ActiveconfirmedProblemImpacted cerumen (74682177)Impacted cerumen, right ear (H61.21)ActiveconfirmedProblemMorbid obesity (disorder) (496634186)Morbid (severe) obesity due to excess calories (E66.01)ActiveconfirmedProblem Hyperlipidemia (07976976)Hyperlipidemia (E78.5)ActiveconfirmedProblem Hypertension (72665154)Hypertension (I10)ActiveconfirmedProblemOsteoarthritis (148934253)Osteoarthritis (M19.90)ActiveconfirmedProblemHyperglycemia (71722994) Hyperglycemia (R73.9)ActiveconfirmedProblemDizziness (472648035)Dizziness (R42) ActiveconfirmedProblemPain of right knee region (finding) (918588063454396)Knee pain, right (M25.561)ActiveconfirmedProblemObese class II (237245352157683)BMI 38.0-38.9,adult (Z68.38)ActiveconfirmedProblemAnnual wellness visit (516137310530230)Wellness examination (Z00.00)Activeconfirmed Vital Signs Blood pressure diastolic 80 mm Hg 09/30/2025 Veneum10 in09/30/2025lood pressure lhbztqal229 mm Hg09/30/20258222Hfmzyu578 lbs 09/30/2025BMI36.58 kg/m209/30/2025 Encounters Encounter Location Date Provider Diagnosis [facility] [address] [place] [address] 02/26/2025 Cassie Peters Hyperlipidemia E78.5 ; Osteoarthritis M19.[address] [facility] [address] [place] [address] 03/03/[address] [facility] [place] [address] 03/[facility]20[facility] [place] [address]/[facility] [address] [place] [address]/[facility] [place] [address]/ [facility] [place] [address]/[facility] [place] [address]/[facility] [place] [address]/Doug HoyEssential (primary) hypertension [address] [place] [address]/10/2024Pamela CramerMorbid (severe) obesity due to excess calories E66.01 ; Knee pain, right M25.561 ; Right shoulder pain M25.511 and Essential (primary) hypertension [address]ZkhpqhaSus[address] [place] [address]/05/2025Doug HoyPricarraway methodist [facility] centery localized osteoarthritis of right knee M17.11BMaurice [address] [place] [address]/Pamela CramerNocturia R35.1 and Right knee pain M25.561 [place] [place] [address] 02/26/2025Pamela CramerBack pain M54.9 and Hypertension I10 Assessments Encounter Date Diagnosis (ICD Code) Assessment Notes Treatment Notes Treatment Clinical Notes Section Notes 04/18/2025 Essential (primary) hypertension (ICD-10 - I10) 05/02/2025Morbid (severe) obesity due to excess calories (ICD-10 - E66.01) work on diet not highly motivated 05/02/2025Knee pain, right (ICD-10 - M25.561) mayo Willis for injection discussed all options 05/09/2025Primary localized osteoarthritis of right knee (ICD-10 - M17.11) 09/30/2025Nocturia (ICD-10 - R35.1)09/30/2025Right knee pain (ICD-10 - M25.561) 02/26/2025Hyperlipidemia (ICD-10 - E78.5)02/26/2025ack pain (ICD-10 - M54.9) right shoulder blade pain toradol 60 fu as needed 02/26/2025Hypertension (ICD-10 - I10)BP check next 1-2 weeks02/26/2025 Osteoarthritis (ICD-10 - M19.90)05/02/2025Right shoulder pain (ICD-10 - M25.511) TOradol 60 requesting pain managment referral 05/02/2025Essential (primary) hypertension (ICD-10 - I10)02/26/2025Hypertension (ICD-10 - I10) Plan Of Treatment Pending Test Test Name Order Date CMP (COMPLETE METABOLIC PANEL) 3 CMP (COMPLETE METABOLIC PANEL) 4 CMP (COMPLETE METABOLIC PANEL) 3 HEMOGLOBIN A1C (GLYCO) 01/26/2023 HEMOGLOBIN A1C (GLYCO) 03/29/2024 HEMOGLOBIN A1C (GLYCO) 02/26/2025 HEMOGLOBIN A1C (GLYCO) 02/10/2023 INSULIN, TOTAL 02/10/2023 INSULIN, TOTAL 03/29/2024 INSULIN, TOTAL 02/26/2025 LIPID PANEL (CHOL/TRIG/HDL/LDL) 01/27/20 23 LIPID PANEL (CHOL/TRIG/HDL/LDL) 03/29/20 24 LIPID PANEL (CHOL/TRIG/HDL/LDL) 02/27/20 25 LIPID PANEL (CHOL/TRIG/HDL/LDL) 02/11/20 23 CBC WITH DIFF (EXP 08/2025) 02/10/2023 CBC WITH DIFF (EXP 08/2025) 03/29/2024 CBC WITH DIFF (08/2025) 01/26/2023 PSA, PROSTATE-SPECIFIC ANTIGEN PSA, PROSTATE-SPECIFIC ANTIGEN 3 URIC ACID 02/26/2025 FECAL OCCULT BLOOD 05/31/2024 PSA, TOTAL 03/29/2024 STOOL OCCULT BLOOD 02/10/2023 STOOL OCCULT BLOOD 01/26/2023 CBC AUTO DIFF 05/31/2024 IRON 05/31/2024 XR KNEE RT 3V 09/30/2025 THYROID PANEL (T4/TSH/FREE T3) 3 THYROID PANEL (T4/TSH/FREE T3) 3 THYROID PANEL (T4/TSH/FREE T3) 5 PSA, SCREENING 02/26/2025 CMP (COMP MET MASSEY) w/eGFR CKD-EPI 2024 CBC WITH DIFF 02/26/2025 Insurance Providers Payer Name Payer Address Payer Phone Subscriber Number Group Number Insured Name Patient Relationship to Insured Coverage Start Date Coverage End Date [employer]ARE [address] [address] [place], [place] [id number] [employer] - patient is the insured Medications Administered Medication Instructions Date of Administration Dosage Notes Kenalog-40 380 mgKetorolac Tiajffpomket09/01/118498 mg Medical (General) History Medical History History ICD Code Osteoarthritis M19.90 Knee pain, right M25.561 BMI 38.0-38.9,adult Z68.38 Hyperglycemia R73.9 Hyperlipidemia E78.5 Impacted cerumen, right ear H61.21 Dizziness R42 Hypertension I10 Wellness examination Z00.00 Surgical History Surgery Date(Month/Year) Tonsillectomy
--- NOTE | 2025-10-01 14:01 | XR_ITS ---
[address] [address] Patient Name: KEISHA CHAVEZ MRN: [id number] date: 1955 Sex: M Assigned Patient Location: [facility] Current Patient Location: [facility] Accession/Order Number: [id number] Exam Date: 10/01/2025 14:05 Report Date: 10/01/2025 15:26 At the request of: MARIA VICTORIA AGUILAR Procedure: XR knee RT 3V 3 views of the right knee INDICATION: Knee pain. Comparison: None FINDINGS: No fracture-dislocation identified. Moderate severe medial joint space narrowing with marginal spurring. Sezj-js-ymppgyxs patellofemoral marker spurring with joint space narrowing. Mild spurring lateral compartment identified. No fracture-dislocation identified. Chondrocalcinosis noted. Small joint effusion. XR/XR knee RT 3V Impression: Overall moderate changes, greatest within medial compartment. Small joint effusion.. Impression dictated by: Michael Reynolds M.D. 10/01/2025 3:26 PM Dictation Location: [place] [address] Electronically authenticated by: [id number] Y Date: 10/01/2025 15:26
--- OUTSIDE RECORDS SUMMARY | 2025-10-01 14:01 | XMS_ITS | Clinical Summary ---
Author Organization [facility] Healthcare Address [address] [place] [address] Care Team Providers Care Application Defense Manager Name Role Phone Unavailable Primary Care Provider Unavailabl e Social History Tobacco UseTypesPacks/DayYears UsedDateSmoking Tobacco: Never AssessedSex and Gender InformationValueDate RecordedSex Assigned at BirthNot on fileLegal Sex Male12/14/2022 10:15 PM EDTGender IdentityNot on fileSexual OrientationNot on file Last Filed Vital Signs Vital SignReadingTime TakenCommentsBlood Pressure--Pulse--Temperature-- Respiratory Rate--Oxygen Saturation--Inhaled Oxygen Concentration--Tgeeob870 kg (256 lb)10/15/2021 12:00 PM AHVHgogxy431.8 cm (5' 10 )10/15/2021 12:00 PM EST Body Mass Index36.7310/15/2021 12:00 PM EST Plan of Treatment Not on file
--- OUTSIDE RECORDS SUMMARY | 2025-10-01 14:09 | XMS_ITS | CCD ---
Author Organization [facility] Care Team Providers Care [place] Machine Operator Name Role Phone DR SITA LIGHT Admitting Unavailable DR SITA LIGHT Attending Unavailable JEFF, MARIA VICTORIA Primary Care Unavailable JEFF, MARIAV ICTORIA Consulting Unavailable JEFF, MARIA VICTORIA Admitting Unavailable JEFF, MARIA VICTORIA Attending Unavailable JEFF, MARIA VICTORIA Primary Care Unavailable JEFF, MARIA VICTORIA Consulting Unavailable JEFF, MARIA VICTORIA Admitting Unavailable JEFF, MARIA VICTORIA Attending Unavailable JEFF, MARIA VICTORIA Primary Care Unavailable JEFF, MARIA VICTORIA Consulting Unavailable Problems Problem ClassificationProblemDateDocumented DateEpisodic/ChronicDiabetes mellitus without complication (1 source)Other abnormal glucose; Translations: [OTHER ABNORMAL GLUCOSE]Onset: 58-96-6214FykhprvaVnxjcnbir of lipid metabolism (5 sources)Hyperlipidemia, unspecified; Translations: [HYPERLIPIDEMIA UNSPECIFIED]Onset: 80-17-9692PwluxpmTrbnbtdjs hypertension (4 sources)Essential (primary) hypertension; Translations: [ESSENTIAL PRIMARY HYPERTENSION]Onset: 96-43-8855ClwslmpVpbc and other crystal arthropathies (1 source)Gout, unspecified; Translations: [GOUT UNSPECIFIED]Onset: 03-21-2022 ChronicMalaise and fatigue (4 sources)Other fatigue; Translations: [OTHER FATIGUE]Onset: 39-70-3653Lbozjdqp Other screening for suspected conditions (not mental disorders or infectious disease) (2 sources)Encounter for screening for malignant neoplasm of prostate; Translations: [Encounter for screening for malignant neoplasm of rectum]Onset: 26-43-9874Xatncaac Results Test NameValueInterpretationReference RangeFacilityINSULINon 36-13-2282Pobzxsn 11.0 uIU/mLNormal2.6-24.9The [facility] HospitalComment on above:Performed By: #### INSULIN #### [facility] [address] [place] [address] Dr. Kiara Gordon AUTO DIFFon [id number] #0.1 103/ulNormal0.0-0.1The [facility] HospitalComment on above:Performed By: #### CMP, LIPID #### [facility] [address] [place] [address] Dr. Kiara OlveraBasophils/100 WBC (Bld)0.8 %Normal0.2-2.0The [facility] Comment on above:Performed By: #### CMP, LIPID #### [facility] [address] [place] [address] Dr. Kiara Garces #1.3 103/ulCritically high0.0-0.7The [facility] HospitalComment on above:Performed By: #### CMP, LIPID #### [facility] [address] [place] [address] Dr. Kiara Patelosinophils/100 WBC (Bld)19.8 %Critically high0.9-7.0The [facility] HospitalComment on above:Performed By: #### CMP, LIPID #### [facility] [address] [place] [address] Dr. Kiara Patelrythrocyte distribution width (RBC) [Ratio]12.8 %Wnmdvn18.0-15.0 [facility] HospitalComment on above:Performed By: #### CMP, LIPID #### [facility] [address] [place] [address] Dr. Kiara OlveraHematocrit (Bld) [Volume fraction]41.4 %Critically low42.0-54.[address] [facility] HospitalComment on above:Performed By: #### CMP, LIPID #### [facility] [address] [place] [address] Dr. Kiara OlveraHemoglobin (Bld) [Mass/Vol]13.8 g/dLCritically low14.0-18.0The [facility]S HospitalComment on above:Performed By: #### CMP, LIPID #### [facility] [address] [place] [address] Dr. Kiara Fischer #0.01 10e3/ulNormal0.00-0.03The [facility]'S HospitalComment on above:Performed By: #### CMP, LIPID #### [facility] [address] [place] [address] Dr. Kiara Fischer %0.2 %Normal0.0-0.5The [facility] HospitalCombrighton hospital on above: Performed By: #### CMP, LIPID #### [facility] [address] [place] [address] Dr. Kiara Dumont #1.9 103/ulNormal1.2-3.8The [facility]S HospitalComment on above:Performed By: #### CMP, LIPID #### [facility] [address] [place] [address] Dr. Kiara Hallhocytes/100 WBC (Bld)28.7 %Gbyzds79.5-60.0The [facility] HospitalCombrighton hospital on above:Performed By: #### CMP, LIPID #### [facility] [address] [place] [address] Dr. Kiara LeyvaUAL DIFF REQNONormalThe St. [facility]'S HospitalComment on above: Performed By: #### CMP, LIPID #### [facility] [address] [place] [address] Dr. Kiara Varela (RBC) [Entitic mass]30.4 phFlukrv19.9-34.0The [facility]S HospitalComment on above:Performed By: #### CMP, LIPID #### [facility] [address] [place] [address] Dr. Kiara Varela (RBC) [Mass/Vol]33.3 g/wNRujxee46.9-35.2The [facility]S HospitalComment on above:Performed By: #### CMP, LIPID #### [facility] [address] [place] [address] Dr. Kiara Varela (RBC) [Entitic vol]91.2 rHCxzprr06.0-94.0The [facility]S HospitalComment on above:Performed By: #### CMP, LIPID #### [facility] [address] [address] [address] Kiara Faria #0.7 103/ulNormal0.3-0.8The [facility]S HospitalComment on above:Performed By: #### CMP, LIPID #### [facility] [address] [address] [address] Kiara Estradaocytes/100 WBC (Bld)10.6 %Normal1.7-12.0The [facility] Comment on above:Performed By: #### CMP, LIPID #### [facility] [address] [place] [address] Dr. Kiara Taylor #2.6 103/ulNormal1.4-6.5The [facility]S HospitalComment on above:Performed By: #### CMP, LIPID #### [facility] [address] [place] [address] Dr. Kiara Callowayutrophils/100 WBC (Bld)39.9 %Critically low43.0-75.0The [facility]S HospitalComment on above:Performed By: #### CMP, LIPID #### [facility] [address] [place] [address] Dr. Kiara Gillet mean volume (Bld) [Entitic vol]8.6 fLCritically low 9.5-13.5The [facility]S HospitalComment on above:Performed By: #### CMP, LIPID #### [facility] [address] [place] [address] Dr. Kiara OlveraPLT336 103/xvTjpsmv915-584Glc St. [facility]'S HospitalComment on above: Performed By: #### CMP, LIPID #### [facility] [address] [place] [address] Dr. Kiara OlveraRBC4.54 106/ulCritically low4.70-6.10The [facility]S HospitalComment on above:Performed By: #### CMP, LIPID #### [facility] [address] [place] [address] Dr. Kiara OlveraWBC6.5 103/ulNormal4.0-11.0The [facility] HospitalComment on above: Performed By: #### CMP, LIPID #### [facility] [address] [address] [address] Kiara OlveraGLYCOHEMOGLOBIN A1Con 80-18-5835ONB RECOMMENDATIONSEE BELOWOhiohealth Arthur G.H. Bing, Md, Cancer CenterCombrighton hospital on above:Result Comment: ADA RECOMMENDED LIMIT 4.0 - 6.0 ADA THERAPEUTIC TARGET < 7.0 ACTION SUGGESTED > 7.0Performed By: #### CMP, LIPID #### [facility] [address] [address] [address] Kiara OlveraGlucose [Mass/Vol]123 mg/dLNoCleveland Clinic [facility] on above:Performed By: #### CMP, LIPID #### [facility] [address] [place] [address] Dr. Kiara OlveraHbA1c (Bld) [Mass fraction]5.9 %Normal4.5-6.2[facility] on above:Performed By: #### CMP, LIPID #### [facility] [address] [place] [address] Dr. Kiara OlveraLIPID PROFILEon [id number]-HDL RATIO NORMSEE [facility] CenterCombrighton hospital on above:Result Comment: 3.3 - 4.4 LOW RISK 4.4 - 7.1 AVERAGE RISK 7.1 - 11.0 MODERATE RISK >11.0 HIGH RISKPerformed By: #### CMP, LIPID #### [facility] [address] [place] [address] Dr. Kiara OlveraCholesterol [Mass/Vol]213 mg/dLCritically high<=200[facility] on above:Performed By: #### CMP, LIPID #### [facility] [address] [place] [address] Dr. Kiara OlveraCholesterol in HDL [Mass/Vol]57 mg/oRRtytro46-69Xep [facility] on above:Performed By: #### CMP, LIPID #### [facility] [address] [place] [address] Dr. Kiara Krameresterol in LDL [Mass/Vol]136.0 mg/dLNormalThe [facility]ovana HospitalComment on above:Performed By: #### CMP, LIPID #### [facility] [address] [place] [address] Dr. Kiara OlveraCholesterol.total/Cholesterol in HDL [Mass ratio]3.7 {ratio} NormalThe St. Rita'S HospitalComment on above:Performed By: #### CMP, LIPID #### [facility] [address] [place] [address] Dr. Kiara Cornejo NORMAL> or = 60 mg/dl - LOW CARDIOVASCULAR RISK <40 mg/dl - HIGH CARDIOVASCULAR RISKFirelands Regional Medical CenterComment on above:Performed By: #### CMP, LIPID #### [facility] [address] [place] [address] Dr. Kiara OlveraLDL CALC NORMALSEE BELOWFirelands Regional Medical CenterComment on above:Result Comment: <100 mg/dl OPTIMAL 100 - 129 mg/dl NEAR OR ABOVE OPTIMAL 130 - 159 mg/dl BORDERLINE HIGH 160 - 189 mg/dl HIGH >190 mg/dl VERY HIGH Performed By: #### CMP, LIPID #### [facility] [address] [place] [address] Dr. Kiara OlveraTriglyceride [Mass/Vol]100 mg/dLNormal<=150The [facility] Comment on above:Performed By: #### CMP, LIPID #### [facility] [address] [place] [address] Dr. Kiara OlveraVLDL CALC20.0 mg/dLNoDiley Ridge Medical CenterComment on above: Performed By: #### CMP, LIPID #### [facility] [address] [place] [address] Dr. Kiara OlveraPROF 14(COMP METB)on 39-46-4673Tdmahkj [Mass/Vol]3.9 g/dLNormal 3.4-5.0The [facility]S HospitalComment on above:Performed By: #### CMP, LIPID #### [facility] [address] [place] [address] Dr. Kiara OlveraAlbumin/Globulin [Mass ratio]1.0 {ratio}NormalThe Lilly HospitalComment on above:Performed By: #### CMP, LIPID #### [facility] [address] [address] [address] Kiara Hernandez [Catalytic activity/Vol]84 U/ELbthzb50-578Xtv St. [facility]'S HospitalComment on above:Performed By: #### CMP, LIPID #### [facility] [address] [address] [address] Kiara Song [Catalytic activity/Vol]20 U/IMlibzs29-07Oxv St[facility]S HospitalComment on above:Performed By: #### CMP, LIPID #### [facility] [address] [address] [address] Kiara Rdz gap [Moles/Vol]13.1 mmol/LNormalThe [facility] Comment on above:Performed By: #### CMP, LIPID #### [facility] [address] [address] [address] Kiara OlveraAST [Catalytic activity/Vol]24 U/NRqvxsq31-44Mjn [facility] Hospitalment on above:Performed By: #### CMP, LIPID #### [facility] [address] [address] [address] Kiara OlveraBilirubin [Mass/Vol]0.4 mg/dLNormal0.2-1.0The [facility] Comment on above:Performed By: #### CMP, LIPID #### [facility] [address] [address] [address] Kiara OlveraCalcium [Mass/Vol]9.2 mg/dLNormal8.5-10.1The [facility] Comment on above:Performed By: #### CMP, LIPID #### [facility] [address] [address] [address] Kiara OlveraChloride [Moles/Vol]103 mmol/KNoboxc01-561Kjv [facility] Comment on above:Performed By: #### CMP, LIPID #### [facility] [address] [address] [address] Kiara OlveraCO2 [Moles/Vol]26.4 mmol/VSmsqwj14.0-32.0The [facility] Comment on above:Performed By: #### CMP, LIPID #### [facility] [address] [address] [address] Kiara OlveraCreatinine [Mass/Vol]0.92 mg/dLNormal0.70-1.30The [facility] HospitalComment on above:Performed By: #### CMP, LIPID #### [facility] [address] [address] [address] Kiara PatelGFR-AF RUSSIAN>60Normal>=60The [facility] HospitalComment on above:Performed By: #### CMP, LIPID #### [facility] [address] [address] [address] Kiara Squires-NON AF RUSSIAN>60Normal>=60The [facility] HospitalComment on above:Performed By: #### CMP, LIPID #### [facility] [address] [address] [address] Kiara OlveraGlobulin (S) [Mass/Vol]3.9 g/dLNormalThe St. [facility]'S HospitalComment on above:Performed By: #### CMP, LIPID #### [facility] [address] [address] [address] Kiara OlveraGlucose [Mass/Vol]114 mg/dLCritically bgzy46-468Uub St. [facility]'S HospitalComment on above:Performed By: #### CMP, LIPID #### [facility] [address] [address] [address] Kiara OlveraPotassium [Moles/Vol]4.5 mmol/LNormal3.5-5.1The [facility] Comment on above:Performed By: #### CMP, LIPID #### [facility] [address] [address] [address] Kiara OlveraProtein [Mass/Vol]7.8 g/dLNormal6.4-8.2The [facility] Comment on above:Performed By: #### CMP, LIPID #### [facility] [address] [address] [address] Kiara OlveraSodium [Moles/Vol]138 mmol/WVkyjje753-095Sou [facility] Comment on above:Performed By: #### CMP, LIPID #### [facility] [address] [address] [address] Kiara OlveraUrea nitrogen [Mass/Vol]11.0 mg/dLNormal7.0-18.0[facility] HospitalComment on above:Performed By: #### CMP, LIPID #### [facility] [address] [address] [address] Kiara OlveraUrea nitrogen/Creatinine [Mass ratio]12.0 mg/mgNoDiley Ridge Medical CenterComment on above:Performed By: #### CMP, LIPID #### [facility] [address] [place] [address] Dr. Kiara OlveraURIC ACID SERUMon 69-11-1201Vkdzw [Mass/Vol]5.5 mg/dLNormal 3.5-7.2[facility] HospitalComment on above:Performed By: #### CMP, LIPID #### [facility] [address] [place] [address] Dr. Kiara OlveraLIPID PROFILEon [id number]-HDL RATIO NORMSEE [facility] CenterComment on above:Result Comment: 3.3 - 4.4 LOW RISK 4.4 - 7.1 AVERAGE RISK 7.1 - 11.0 MODERATE RISK >11.0 HIGH RISKPerformed By: #### CMP, LIPID #### [facility] [address] [place] [address] Dr. Kiara OlveraCholesterol [Mass/Vol]230 mg/dLCritically high<=200The St[facility] HospitalComment on above:Performed By: #### CMP, LIPID #### [facility] [address] [place] [address] Dr. Kiara OlveraCholesterol in HDL [Mass/Vol]46 mg/dLFirelands Regional Medical Center Comment on above:Performed By: #### CMP, LIPID #### [facility] [address] [place] [address] Dr. Kiara OlveraCholesterol in LDL [Mass/Vol]148.6 mg/dLWilson Street Hospital on above:Performed By: #### CMP, LIPID #### [facility] [address] [address] [address] Kiara OlveraCholesterol.total/Cholesterol in HDL [Mass ratio]5.0 {ratio} NormalThe [facility] on above:Performed By: #### CMP, LIPID #### [facility] [address] [address] [address] Kiara Cornejo NORMAL> or = 60 mg/dl - LOW CARDIOVASCULAR RISK <40 mg/dl - HIGH CARDIOVASCULAR RISKWilson Street Hospital on above:Performed By: #### CMP, LIPID #### [facility] [address] [place] [address] Dr. Kiara OlveraLDL CALC NORMALSEE BELOWWilson Street Hospital on above:Result Comment: <100 mg/dl OPTIMAL 100 - 129 mg/dl NEAR OR ABOVE OPTIMAL 130 - 159 mg/dl BORDERLINE HIGH 160 - 189 mg/dl HIGH >190 mg/dl VERY HIGH Performed By: #### CMP, LIPID #### [facility] [address] [place] [address] Dr. Kiara OlveraTriglyceride [Mass/Vol]177 mg/dLCritically high<=150The [facility] on above:Performed By: #### CMP, LIPID #### [facility] [address] [place] [address] Dr. Kiara SagastumeLDL CALC35.4 mg/dLNoCleveland Clinic [facility] on above: Performed By: #### CMP, LIPID #### [facility] [address] [place] [address] Dr. Kiara OlveraPROF 14(COMP METB)on 41-11-5867Lsnyzak [Mass/Vol]4.0 g/dLNormal 3.5-5.0The [facility] on above:Performed By: #### CMP, LIPID #### [facility] [address] [place] [address] Dr. Kiara OlveraAlbumin/Globulin [Mass ratio]1.0 {ratio}NormalThe [facility] HospitalComment on above:Performed By: #### CMP, LIPID #### [facility] [address] [address] [address] Kiara Hernandez [Catalytic activity/Vol]99 U/FXtvyiu03-145Gsi St[facility]'S HospitalComment on above:Performed By: #### CMP, LIPID #### [facility] [address] [address] [address] Kiara NavasT [Catalytic activity/Vol]22 U/DUoniei17-24Qfj St[facility]'S HospitalComment on above:Performed By: #### CMP, LIPID #### [facility] [address] [address] [address] Kiara Rdz gap [Moles/Vol]14.6 mmol/LNormalThe [facility] Comment on above:Performed By: #### CMP, LIPID #### [facility] [address] [address] [address] Kiara OlveraAST [Catalytic activity/Vol]25 U/BOyoznm47-99Uak St[facility] HospitalComment on above:Performed By: #### CMP, LIPID #### [facility] [address] [address] [address] Kiara OlveraBilirubin [Mass/Vol]0.6 mg/dLNormal0.2-1.3The [facility] Comment on above:Performed By: #### CMP, LIPID #### [facility] [address] [address] [address] Kiara OlveraCalcium [Mass/Vol]9.4 mg/dLNormal8.4-10.2[facility] Comment on above:Performed By: #### CMP, LIPID #### [facility] [address] [address] [address] Kiara OlveraChloride [Moles/Vol]101 mmol/XAiufqe41-597Fiv [facility] Comment on above:Performed By: #### CMP, LIPID #### [facility] [address] [address] [address] Kiara OlveraCO2 [Moles/Vol]25.8 mmol/RCdisyi86.0-30.0The [facility] Comment on above:Performed By: #### CMP, LIPID #### [facility] [address] [address] [address] Kiara OlveraCreatinine [Mass/Vol]0.80 mg/dLNormal0.66-1.25The [facility] HospitalComment on above:Performed By: #### CMP, LIPID #### [facility] [address] [address] [address] Kiara PatelGFR-AF RUSSIAN>60Normal>=60The [facility] HospitalComment on above:Performed By: #### CMP, LIPID #### [facility] [address] [address] [address] Kiara PatelGFR-NON AF RUSSIAN>60Normal>=60The [facility] HospitalComment on above:Performed By: #### CMP, LIPID #### [facility] [address] [address] [address] Kiara OlveraGlobulin (S) [Mass/Vol]4.2 g/dLNormalThe St. [facility]'S HospitalComment on above:Performed By: #### CMP, LIPID #### [facility] [address] [address] [address] Kiara OlveraGlucose [Mass/Vol]102 mg/kDNeimji90-743LovBluffton Hospital Comment on above:Performed By: #### CMP, LIPID #### [facility] [address] [address] [address] Kiara OlveraPotassium [Moles/Vol]4.4 mmol/LNormal3.4-5.0The [facility] Comment on above:Performed By: #### CMP, LIPID #### [facility] [address] [address] [address] Kiara OlveraProtein [Mass/Vol]8.2 g/dLNormal6.1-8.2The [facility] Comment on above:Performed By: #### CMP, LIPID #### [facility] [address] [address] [address] Kiara OlveraSodium [Moles/Vol]137 mmol/PBuemhx688-883Foo [facility] Comment on above:Performed By: #### CMP, LIPID #### [facility] [address] [place] [address] Dr. Kiara Frye nitrogen [Mass/Vol]12.0 mg/dLNormal9.0-20.0The [facility] HospitalComment on above:Performed By: #### CMP, LIPID #### [facility] [address] [place] [address] Dr. Kiara OlveraUrea nitrogen/Creatinine [Mass ratio]15.0 mg/mgNormalThe St. [facility]'S HospitalComment on above:Performed By: #### CMP, LIPID #### [facility] [address] [place] [address] Dr. Kiara OlveraINSULINon 59-67-5580Kapufzz83.0 uIU/mLNormal2.6-24.9The [facility] HospitalComment on above:Performed By: #### INSULIN #### [facility] [address] [place] [address] Albin KarenCBC AUTO DIFFon 11-87-4896KIJG #0.1 103/ulNormal0.0-0.1The [facility] HospitalComment on above:Performed By: #### CMP, LIPID #### [facility] [address] [place] [address] Dr. Kiara OlveraBasophils/100 WBC (Bld)0.9 %Normal0.2-2.0[facility] Comment on above:Performed By: #### CMP, LIPID #### [facility] [address] [place] [address] Dr. Kiara Garces #0.0 103/ulNormal0.0-0.7The [facility] HospitalComment on above: Performed By: #### CMP, LIPID #### [facility] [address] [place] [address] Dr. Kiara Patelosinophils/100 WBC (Bld)0.6 %Critically low0.9-7.0The [facility] HospitalComment on above:Performed By: #### CMP, LIPID #### [facility] [address] [place] [address] Dr. Kiara Patelrythrocyte distribution width (RBC) [Ratio]13.9 %Qvlznp97.0-15.[address] [facility] HospitalComment on above:Performed By: #### CMP, LIPID #### [facility] [address] [place] [address] Dr. Kiara OlveraHematocrit (Bld) [Volume fraction]44.6 %Ogpydh22.0-54.0The [facility] HospitalComment on above:Performed By: #### CMP, LIPID #### [facility] [address] [place] [address] Dr. Kiara OlveraHemoglobin (Bld) [Mass/Vol]14.8 g/iZTmawer13.0-18.0The [facility] HospitalCombrighton hospital on above:Performed By: #### CMP, LIPID #### [facility] [address] [place] [address] Dr. Kiara Fischer #0.03 10e3/ulNormal0.00-0.03The [facility] HospitalCombrighton hospital on above:Performed By: #### CMP, LIPID #### [facility] [address] [place] [address] Dr. Kiara Fischer %0.4 %Normal0.0-0.5The [facility] on above: Performed By: #### CMP, LIPID #### [facility] [address] [place] [address] Dr. Kiara HallH #2.1 103/ulNormal1.2-3.8The [facility] on above:Performed By: #### CMP, LIPID #### [facility] [address] [place] [address] Dr. Kiara Cedillomphocytes/100 WBC (Bld)29.5 %Fdnfjv38.5-60.0The [facility] HospitalComment on above:Performed By: #### CMP, LIPID #### [facility] [address] [place] [address] Dr. Kiara LeyvaUAL DIFF REQNONormalThe St. [facility]'S HospitalComment on above: Performed By: #### CMP, LIPID #### [facility] [address] [place] [address] Dr. Kiara Varela (RBC) [Entitic mass]30.[address] ovGniqge00.9-34.0The [facility] HospitalComment on above:Performed By: #### CMP, LIPID #### [facility] [address] [place] [address] Dr. Kiara Varela (RBC) [Mass/Vol]33.2 g/sFEwhhpg45.9-35.2The [facility] HospitalComment on above:Performed By: #### CMP, LIPID #### [facility] [address] [place] [address] Dr. Kiara Varela (RBC) [Entitic vol]90.5 nELfyxih71.0-94.0The [facility] HospitalComment on above:Performed By: #### CMP, LIPID #### [facility] [address] [place] [address] Dr. Kiara Faria #0.6 103/ulNormal0.3-0.8The [facility] HospitalComment on above:Performed By: #### CMP, LIPID #### [facility] [address] [place] [address] Dr. Kiara Estradaocytes/100 WBC (Bld)9.1 %Normal1.7-12.0The [facility] Comment on above:Performed By: #### CMP, LIPID #### [facility] [address] [place] [address] Dr. Kiara Taylor #4.1 103/ulNormal1.4-6.5The [facility] HospitalComment on above:Performed By: #### CMP, LIPID #### [facility] [address] [place] [address] Dr. Kiara Callowayutrophils/100 WBC (Bld)59.5 %Juhksi26.0-75.0The [facility]S HospitalComment on above:Performed By: #### CMP, LIPID #### [facility] [address] [place] [address] Dr. Kiara Gillet mean volume (Bld) [Entitic vol]8.9 fLCritically low 9.5-13.5The [facility]S HospitalComment on above:Performed By: #### CMP, LIPID #### [facility] [address] [place] [address] Dr. Kiara OlveraPLT298 103/lrXufxlv877-389Oed St[facility]S HospitalComment on above: Performed By: #### CMP, LIPID #### [facility] [address] [address] [address] Kiara OlveraRBC4.93 106/ulNormal4.70-6.10The [facility]S HospitalComment on above:Performed By: #### CMP, LIPID #### [facility] [facility] [address] [place] [address] Dr. Kiara OlveraWBC6.9 103/ulNormal4.0-11.0The St. Rita'S HospitalComment on above: Performed By: #### CMP, LIPID #### [facility] [address] [place] [address] Dr. Kiara OlveraGLYCOHEMOGLOBIN A1Con [id number] RECOMMENDATIONADA THERAPEUTIC TARGET 6.0 - 7.0 ACTION SUGGESTED > 7.0NormMercy Health St. Charles HospitalComment on above:Performed By: #### A1C #### [facility] [address] [place] [address] Albin KarenGlucose [Mass/Vol]126 mg/dLNoDiley Ridge Medical CenterComment on above:Performed By: #### A1C #### [facility] [address] [place] [address] Albin EagkoAsM4p (Bld) [Mass fraction]6.0 %Normal<=6.0The [facility] Comment on above:Performed By: #### A1C #### [facility] [address] [place] [address] Albin KarenLIPID PROFILEon [id number]-HDL RATIO NORMSEE BELOWNoDiley Ridge Medical CenterComment on above:Result Comment: 3.3 - 4.4 LOW RISK 4.4 - 7.1 AVERAGE RISK 7.1 - 11.0 MODERATE RISK >11.0 HIGH RISKPerformed By: #### PSASC, LIPID, CMP, URIC #### [facility] [address] [address] Albin KarenCholesterol [Mass/Vol]254 mg/dLCritically high<=200[facility]Combrighton [facility] on above:Performed By: #### PSASC, LIPID, CMP, URIC #### [facility] [address] [place] [address] Albin KarenCholesterol in HDL [Mass/Vol]46 mg/dLFirelands Regional Medical Center Comment on above:Performed By: #### PSASC, LIPID, CMP, URIC #### [facility] [address] [place] [address] Albin KarenCholesterol in LDL [Mass/Vol]179.0 mg/dLFirelands Regional Medical Center Comment on above:Performed By: #### PSASC, LIPID, CMP, URIC #### [facility] [address] [place] [address] Albin KarenCholesterol.total/Cholesterol in HDL [Mass ratio]5.5 {ratio}Normal The [facility]'S HospitalComment on above:Performed By: #### PSASC, LIPID, CMP, URIC #### [facility] [address] [place] [address] Albin KarenHDL NORMAL> or = 60 mg/dl - LOW CARDIOVASCULAR RISK <40 mg/dl - HIGH CARDIOVASCULAR RISKFirelands Regional Medical CenterComment on above:Performed By: #### PSASC, LIPID, CMP, URIC #### [facility] [address] [place] [address] Albin KarenLDL CALC NORMALSEE BELOWFirelands Regional Medical CenterComment on above: Result Comment: <100 mg/dl OPTIMAL 100 - 129 mg/dl NEAR OR ABOVE OPTIMAL 130 - 159 mg/dl BORDERLINE HIGH 160 - 189 mg/dl HIGH >190 mg/dl VERY HIGHPerformed By: #### PSASC, LIPID, CMP, URIC #### [facility] [address] [place] [address] Albin KarenTriglyceride [Mass/Vol]147 mg/dLNormal<=150[facility] Comment on above:Performed By: #### PSASC, LIPID, CMP, URIC #### [facility] [address] [address] Albin KarenVLDL CALC29.4 mg/dLNormalThe St. Rita'S HospitalComment on above: Performed By: #### PSASC, LIPID, CMP, URIC #### [facility] [address] [place] [address] Albin OroCC BLD IMMUNO SCREENon [id number] BLOODNegativeNormalNEGATIVE The St[facility] Rita'S HospitalComment on above:Performed By: #### OBSCRN #### [facility] [address] [place] [address] Albin BarrosoenPROF 14(COMP METB)on [id number] [Mass/Vol]3.8 g/dLNormal 3.5-5.0The [facility]'S HospitalComment on above:Performed By: #### CMP, LIPID #### [facility] [address] [place] [address] Dr. Kiara OlveraAlbumin/Globulin [Mass ratio]0.8 {ratio}NormalBluffton HospitalComment on above:Performed By: #### CMP, LIPID #### [facility] [address] [place] [address] Dr. Kiara Hernandez [Catalytic activity/Vol]88 U/MRlszrl35-966SdvBluffton HospitalComment on above:Performed By: #### CMP, LIPID #### [facility] [address] [place] [address] Dr. Kiara Song [Catalytic activity/Vol]19 U/LCritically rhi12-32Qea St. Rita'S HospitalComment on above:Performed By: #### CMP, LIPID #### [facility] [address] [place] [address] Dr. Kiara Rdz gap [Moles/Vol]15.2 mmol/LNormalThe [facility] Comment on above:Performed By: #### CMP, LIPID #### [facility] [address] [place] [address] Dr. Yilan ChangAST [Catalytic activity/Vol]19 U/IEiylew85-60Mew St. [facility]'S HospitalComment on above:Performed By: #### CMP, LIPID #### [facility] [address] [place] [address] Dr. Kiara OlveraBilirubin [Mass/Vol]0.4 mg/dLNormal0.2-1.3The [facility] Comment on above:Performed By: #### CMP, LIPID #### [facility] [address] [place] [address] Dr. Kiara OlveraCalcium [Mass/Vol]9.1 mg/dLNormal8.4-10.2[facility] Comment on above:Performed By: #### CMP, LIPID #### [facility] [address] [place] [address] Dr. Kiara OlveraChloride [Moles/Vol]104 mmol/RWmsqch01-236GjkBluffton Hospital Comment on above:Performed By: #### CMP, LIPID #### [facility] [address] [place] [address] Dr. Kiraa OlveraCO2 [Moles/Vol]25.3 mmol/CLfkxzz39.0-30.0[facility] Comment on above:Performed By: #### CMP, LIPID #### [facility] [address] [place] [address] Dr. Kiara OlveraCreatinine [Mass/Vol]1.00 mg/dLNormal0.66-1.25The [facility]'S HospitalComment on above:Performed By: #### CMP, LIPID #### [facility] [address] [place] [address] Dr. Kiara PatelGFR-AF RUSSIAN>60Normal>=60The St[facility] Rita'S HospitalComment on above:Performed By: #### CMP, LIPID #### [facility] [address] [place] [address] Dr. Kiara PatelGFR-NON AF RUSSIAN>60Normal>=60The [facility]'S HospitalComment on above:Performed By: #### CMP, LIPID #### [facility] [address] [place] [address] Dr. Kiara OlveraGlobulin (S) [Mass/Vol]4.3 g/dLNormMercy Health St. Charles HospitalComment on above:Performed By: #### CMP, LIPID #### [facility] [address] [place] [address] Dr. Kiara OlveraGlucose [Mass/Vol]115 mg/dLCritically nanh05-169Yrz St. [facility]'S HospitalComment on above:Performed By: #### CMP, LIPID #### [facility] [address] [place] [address] Dr. Kiara OlveraPotassium [Moles/Vol]4.5 mmol/LNormal3.4-5.0The [facility] Comment on above:Performed By: #### CMP, LIPID #### [facility] [address] [place] [address] Dr. Kiara OlveraProtein [Mass/Vol]8.1 g/dLNormal6.1-8.2The [facility] Comment on above:Performed By: #### CMP, LIPID #### [facility] [address] [place] [address] Dr. Kiara OlveraSodium [Moles/Vol]140 mmol/GKoubyi921-630Mam [facility] Comment on above:Performed By: #### CMP, LIPID #### [facility] [address] [place] [address] Dr. Kiara OlveraUrea nitrogen [Mass/Vol]12.0 mg/dLNormal9.0-20.0The [facility]'S HospitalComment on above:Performed By: #### CMP, LIPID #### [facility] [address] [place] [address] Dr. Kiara OlveraUrea nitrogen/Creatinine [Mass ratio]12.0 mg/mgNoDiley Ridge Medical CenterComment on above:Performed By: #### CMP, LIPID #### [facility] [address] [place] [address] Dr. Kiara OlveraURIC ACID SERUMon 80-80-3548Emjrh [Mass/Vol]6.5 mg/dLNormal 3.5-8.5The [facility]'S HospitalComment on above:Performed By: #### PSASC, LIPID, CMP, URIC #### [facility] [address], [place] [address] Albin Kohler Encounters Encounter DateEncounter TypeCare ProviderFacilityStart: 03-12-2022 End: 80-95-7098oppmlditfuOA SITA HOYFacility:L9Nphgu: 07-10-2021 End: 73-11-0830iniluvqesfVCCPBR CRAMERFacility:H5Ycvnv: 03-27-2021 End: 42-15-9594hcmadoyrcdJGCDFE CRAMERFacility:H1 Procedures DateProcedureProcedure DetailPerforming ClinicianStart: 60-94-0739PKH screening DR SITA Mcdermott on above:Performed By: #### PSASC #### [facility] [address], [place] [address] Dr. Kiara OlveraStart: 02-24-5325WOO screeningDR SITA HOYComment on above: Performed By: #### PSASC, LIPID, CMP, URIC #### [facility] [address], [place] [address] Albin Kohler Payers DatePayer CategoryPayerPolicy [id number] 1960Unknown [id number] Summary Purpose Family History No Family History Records Found Advance Directives No Advanced Directives Records Found Additional Source Comments (unrecognized sect ion and content) No Status Records Found INFORMATION SOURCE (unrecogn ized section and content) DATE CREATED AUTHOR 03/22/[address] [facility] FOR RECORDS PERTAINING TO PATIENTS WHO ARE [...] BE BASED ON THE PRIMARY CLINICAL RECORDS. [facility]. provides no warranty or guarantee of the accuracy or completeness of information in this document.
== END 2025-10-01 13:57 | disposition home or self-care (01) ==
LOC: RAD 13:58
PROVIDERS: PCP Nurse Practitioner Family; Visit Provider Nurse Practitioner Family
DX: M25.561 Pain in right knee (principal); M25.461 Effusion, right knee
CPT/HCPCS: 73562